=== PATIENT | female | born 1960 | race African-American/Black ===

== ENCOUNTER 2016-12-27 18:51 | Observation (INO) | payer MEDICAID ==
[~2016-12-27 18:51] MED LIST: AUGM875T PO; NORV10TA PO; VASO10TA8; VERA240T18 OR
[2016-12-27 18:55] VITALS: BP 163/97; PULSE 70; RESP 20; TEMP 98.5; O2SAT 98
--- NOTE | 2016-12-27 19:14 | PD ---
HPI Chief Complaint: Chest Pain Time Seen by Provider: 19:11 Travel History International Travel<30 days: No Contact w/Intl Traveler<30days: No Traveled to known affect area: No History of Present Illness HPI 56-year-old Afro-[place] female presents the emergency department with history of present 45 minutes an onset substernal chest pain and tightness which started at rest. Patient describes it as a crampy type pain in the left chest. She denies nausea, vomiting, or significant shortness of breath. Her pain is described as 8 out of 10. Patient has no previous history of cardiac issues other than hypertension. She is currently being treated for glaucoma. She was type II diabetic until losing a large amount of weight. She did not take aspirin prior to arrival. She is allergic to sulfa. Current medications include verapamil and Timolol eyedrops. PFSH Past Medical History Cancer: No Cardiovascular Problems: Yes (hypertension) High Cholesterol: Yes Diabetes: Yes Diminished Hearing: No Endocrine: Yes Genitourinary: No Hepatitis: No Hiatal Hernia: No Hypertension: Yes Immune Disorder: No Musculoskeletal: No Neurologic: No Psychiatric: No Reproductive: No Respiratory: No Sleep Apnea: No Thyroid Disease: No Menopausal: Yes Past Surgical History Abdominal Surgery: Yes AICD: No Body Medical Devices: NONE Cardiac Surgery: No Ear Surgery: No Endocrine Surgery: No Eye Surgery: No Genitourinary Surgery: No Gynecologic Surgery: Yes (HYSTERECTOMY 1994) Hysterectomy: Yes Joint Replacement: No Oral Surgery: No Pacemaker: No Thoracic Surgery: No Other Surgery: Yes Social History Alcohol Use: No Tobacco Use: No Substance Use: No Allergies-Medications (Allergen,Severity, Reaction): Coded Allergies: sulfamethoxazole (Unverified Adverse Reaction, Mild, FALL ASLEEP AND LOSS OF APPETITE, 12/27/16) trimethoprim (Unverified Adverse Reaction, Mild, FALL ASLEEP AND LOSS OF APPETITE, 12/27/16) Reported Meds & Prescriptions Reported Meds & Active Scripts Active Reported Timolol Opth Drops 0.5 % Soln 1 Drop EACH EYE BID Verapamil (Verapamil HCl) 120 Mg Tab 240 Mg PO BID Review of Systems Except as stated in HPI: all other systems reviewed are Neg General / Constitutional: No: Fever Eyes: No: Visual changes HENT: No: Headaches Cardiovascular: Positive: Chest Pain or Discomfort, No: Palpitations, Irregular Rhythm, Tachycardia, Diaphoresis, Syncope, Dyspnea on exertion, Edema Respiratory: No: Shortness of Breath Gastrointestinal: No: Abdominal Pain Genitourinary: No: Dysuria Musculoskeletal: No: Pain Skin: No Rash Neurologic: No: Weakness Psychiatric: No: Depression Endocrine: No: Polydipsia Hematologic/Lymphatic: No: Easy Bruising Physical Exam Narrative GENERAL: Patient appears in mild to moderate distress. She is somewhat anxious. SKIN: Warm and dry. Normal color. Normal turgor. No significant diaphoresis. HEAD: Atraumatic. Normocephalic. EYES: Pupils equal and round. No scleral icterus. No injection or drainage. ENT: No nasal bleeding or discharge. Mucous membranes pink and moist. Pharynx is clear. Airway is patent. NECK: Trachea midline. Supple and nontender. CARDIOVASCULAR: Regular rate and rhythm. No murmurs gallops or rubs appreciated. RESPIRATORY: No accessory muscle use. Clear to auscultation. Breath sounds equal bilaterally. GASTROINTESTINAL: Abdomen soft, non-tender, nondistended. Hepatic and splenic margins not palpable. MUSCULOSKELETAL: Extremities without clubbing, cyanosis, or edema. No obvious deformities. NEUROLOGICAL: Awake and alert. No obvious cranial nerve deficits. Motor grossly within normal limits. Five out of 5 muscle strength in the arms and legs. Normal speech. PSYCHIATRIC: Appropriate mood and affect; insight and judgment normal. Data Data Last Documented VS Vital Signs Date Time Temp Pulse Resp B/P (MAP) Pulse Ox O2 Delivery O2 Flow Rate FiO2 12/27/16 19:49 53 18 163/90 (114) 99 Room Air 12/27/16 19:17 98.6 Orders Orders Electrocardiogram (12/27/16 19:14) Ckmb (Isoenzyme) Profile (12/27/16 19:14) Complete Blood Count With Diff (12/27/16 19:14) Comprehensive Metabolic Panel (12/27/16 19:14) Magnesium (Mg) (12/27/16 19:14) Prothrombin Time / Inr (Pt) (12/27/16 19:14) Act Partial Throm Time (Ptt) (12/27/16 19:14) Troponin I (12/27/16 19:14) Chest, Single Ap (12/27/16 19:14) Ecg Monitoring (12/27/16 19:14) Bilateral Bp Monitoring (12/27/16 19:14) Iv Access Insert/Monitor (12/27/16 19:14) Oximetry (12/27/16 19:14) Oxygen Administration (12/27/16 19:14) Aspirin Chew (Aspirin Chew) (12/27/16 19:15) Morphine Inj (Morphine Inj) (12/27/16 19:15) Sodium Chloride 0.9% Flush (Ns Flush) (12/27/16 19:15) Nitroglycerin Sl (Nitrostat Sl) (12/27/16 19:15) Sodium Chlorid 0.9% 500 Ml Inj (Ns 500 M (12/27/16 19:15) Electrocardiogram (12/27/16 ) Nitroglycerin 2% Oint (Nitroglycerin 2% (12/27/16 20:00) CKMB (12/27/16 19:20) CKMB% (12/27/16 19:20) Labs Laboratory Tests Test 12/27/16 19:20 White Blood Count 7.7 TH/MM3 Red Blood Count 4.05 MIL/MM3 Hemoglobin 12.3 GM/DL Hematocrit 36.9 % Mean Corpuscular Volume 91.1 FL Mean Corpuscular Hemoglobin 30.3 PG Mean Corpuscular Hemoglobin Concent 33.3 % Red Cell Distribution Width 13.3 % Platelet Count 282 TH/MM3 Mean Platelet Volume 7.7 FL Neutrophils (%) (Auto) 53.4 % Lymphocytes (%) (Auto) 36.6 % Monocytes (%) (Auto) 6.3 % Eosinophils (%) (Auto) 3.1 % Basophils (%) (Auto) 0.6 % Neutrophils # (Auto) 4.1 TH/MM3 Lymphocytes # (Auto) 2.8 TH/MM3 Monocytes # (Auto) 0.5 TH/MM3 Eosinophils # (Auto) 0.2 TH/MM3 Basophils # (Auto) 0.0 TH/MM3 CBC Comment DIFF FINAL Differential Comment Prothrombin Time 10.8 SEC Prothromb Time International Ratio 1.0 RATIO Activated Partial Thromboplast Time 25.3 SEC Blood Urea Nitrogen 19 MG/DL Creatinine 1.31 MG/DL Random Glucose 63 MG/DL Total Protein 7.8 GM/DL Albumin 3.9 GM/DL Calcium Level 8.9 MG/DL Magnesium Level 2.0 MG/DL Alkaline Phosphatase 132 U/L Aspartate Amino Transf (AST/SGOT) 30 U/L Alanine Aminotransferase (ALT/SGPT) 30 U/L Total Bilirubin 0.5 MG/DL Sodium Level 142 MEQ/L Potassium Level 3.7 MEQ/L Chloride Level 111 MEQ/L Carbon Dioxide Level 26.8 MEQ/L Anion Gap 4 MEQ/L Estimat Glomerular Filtration Rate 51 ML/MIN Total Creatine Kinase 313 U/L Troponin I LESS THAN 0.02 NG/ML MDM Medical Decision Making Medical Screen Exam Complete: Yes Emergency Medical Condition: Yes Medical Record Reviewed: Yes Differential Diagnosis Substernal chest pain. Cardiac syndrome. Esophageal spasm. Narrative Course Patient is medically stable at time of exam. EKG shows a normal sinus rhythm with minimal voltage criteria for LVH and nonspecific-T wave abnormalities. This was reviewed with Dr. Regan. IV access is obtained and labs are ordered including CBC, CMP, cardiac panel. Patient is given 4 mg Zofran IV as well as 4 mg of morphine IV. Patient is given sublingual nitroglycerin 0.4 mg one every 5 minutes for chest pain 3. Patient is given 324 mg aspirin by mouth. Chest x-ray is ordered. 1945 hours, patient is been given 4 mg morphine as well as 1 sublingual nitroglycerin and her pain is improved to a 3 out of 10. Patient is given a secondary dose of sublingual nitroglycerin 0.4 mg. Repeat EKG at 194, shows flipped T waves in the ventral leads, more pronounced than the original EKG at 1912 hrs. This was reviewed with Dr. Regan. CBC was unremarkable. Chest x-ray shows no acute process per radiologist. Coagulation studies are normal. Chemistries unremarkable except for a chloride of 111, a 19, creatinine 1.31, GFR 51, random glucose is 63. Alkaline phosphatase is elevated at 132, total creatinine kinase is 313, however troponin is less than 0.02. Patient was pain-free after her second dose of sublingual nitroglycerin 0.4. Patient was placed on 1 inch of nitroglycerin paste. Findings discussed with Dr. Regan who recommended admission to the chest pain center. Diagnosis Primary Impression: Chest pain at rest Admitting Information Admitting Physician Requests: Observation Condition: Stable Robert Moulton Dec 27, 2016 19:14
[2016-12-27] MEDS ORDERED: SODIUM CHLORID 0.9% 500 ML INJ 500 ML IV ONE (19:15)
[2016-12-27] MEDS ORDERED: SODIUM CHLORIDE 0.9% FLUSH 10 ML FLUSH IVF PRN (19:15)
[2016-12-27] MEDS ORDERED: MORPHINE SULFATE 4 MG/ML INJ IV PUSH ONE (19:15)
[2016-12-27] MEDS ORDERED: ASPIRIN 81 MG CHEW TAB PO ONE (19:15)
[2016-12-27] MEDS ORDERED: VERA120T3 PO (19:16)
[2016-12-27] MEDS ORDERED: TIMO0.5S30 EACH EYE (19:16)
[2016-12-27 19:17] VITALS: BP_SYST 173; BP_SYST 180; BP_DIAS 102; BP_DIAS 88; PULSE 76; RESP 18; TEMP 98.6; O2SAT 99
[2016-12-27] MEDS: NITROGLYCERIN 0.4 MG SL 25 TABS/BTL SL SCH ×3 (19:32→19:53)
[2016-12-27 19:41] LABS: AUTOMATED NEUTROPHIL # 4.1 TH/MM3 (1.8-7.7); BASOPHIL % 0.6 % (0.0-2.0); EOSINOPHIL # 0.2 TH/MM3 (0-0.4); EOSINOPHIL % 3.1 % (0.0-4.0); HEMATOCRIT 36.9 % (35.0-46.0); HEMO FLAGS DIFF FINAL; LYMPH % 36.6 % (9.0-44.0); LYMPHOCYTE # 2.8 TH/MM3 (1.0-4.8); MEAN CELL VOLUME 91.1 FL (80.0-100.0); MEAN CORPUSCULAR HEMOGLOBIN 30.3 PG (27.0-34.0); MEAN CORPUSCULAR HGB CONC 33.3 % (32.0-36.0); MONO % 6.3 % (0.0-8.0); NEUT % 53.4 % (16.0-70.0); PLATELET COUNT 282 TH/MM3 (150-450); RED BLOOD COUNT 4.05 MIL/MM3 (4.00-5.30); RED CELL DISTRIBUTION WIDTH 13.3 % (11.6-17.2); WHITE BLOOD COUNT 7.7 TH/MM3 (4.0-11.0)
--- NOTE | 2016-12-27 19:47 | RADRPT ---
EXAM DATE/TIME: 12/27/2016 19:26 [facility] COMPARISON: No previous studies available for comparison. INDICATIONS : Chest pain. MEDICAL HISTORY : None. SURGICAL HISTORY : None. ENCOUNTER: Initial ACUITY: 1 day PAIN SCORE: 5/10 LOCATION: Bilateral chest FINDINGS: A single view of the chest demonstrates the lungs to be symmetrically aerated without evidence of mas s, infiltrate or effusion. The cardiomediastinal contours are unremarkable. Osseous structures are intact. CONCLUSION: No acute disease. Louie Day MD on December 27, 2016 at 19:46 Board Certified Radiologist. This report was verified electronically.
[2016-12-27 19:49] VITALS: BP 163/90; PULSE 53; RESP 18; O2SAT 99
[2016-12-27 19:52] LABS: APTT (PATIENT) 25.3 SEC (24.3-30.1); PROTHROMBIN TIME - PATIENT 10.8 SEC (9.8-11.6)
[2016-12-27 19:59] LABS: ALT (GPT) 30 U/L (10-53)
[2016-12-27] MEDS ORDERED: NITROGLYCERIN 2% OINT 1 GM PACKET TOPICAL ONE (20:00)
[2016-12-27 20:09] LABS: ALKALINE PHOSPHATASE 132 U/L (45-117); ANION GAP 4 MEQ/L (5-15); AST (GOT) 30 U/L (15-37); BICARBONATE 26.8 MEQ/L (21.0-32.0); BLOOD UREA NITROGEN 19 MG/DL (7-18); CHLORIDE 111 MEQ/L (98-107); CREATINE KINASE 313 U/L (26-192); GLOMERULAR FILTRATION RATE 51 ML/MIN (>89); POTASSIUM 3.7 MEQ/L (3.5-5.1); SODIUM (NA) 142 MEQ/L (136-145); TOTAL BILIRUBIN ADULT 0.5 MG/DL (0.2-1.0)
[2016-12-27 20:21] LABS: CKMB 1.4 NG/ML (0.5-3.6)
[2016-12-27] MEDS ORDERED: MORPHINE SULFATE 4 MG/ML INJ IV PUSH PRN (20:30)
[2016-12-27] MEDS ORDERED: ONDANSETRON HCL 4 MG/2 ML VIAL IV PUSH PRN (20:30)
[2016-12-27] MEDS ORDERED: ACETAMINOPHEN 500 MG CPLT PO PRN (20:30)
[2016-12-27] MEDS ORDERED: SODIUM CHLORIDE 0.9% FLUSH 10 ML FLUSH IV FLUSH PRN (20:30)
[2016-12-27] MEDS ORDERED: NITROGLYCERIN 0.4 MG SL 25 TABS/BTL SL PRN (20:30)
[2016-12-27 21:31] VITALS: BP 178/80; PULSE 51; RESP 18; O2SAT 100
[2016-12-27] MEDS: SODIUM CHLORIDE 0.9% FLUSH 10 ML FLUSH IV FLUSH SCH (21:39)
[2016-12-27 23:08] VITALS: BP 157/78; PULSE 54; RESP 18; TEMP 97.6; O2SAT 100
[2016-12-27 23:24] VITALS: PULSE 64
[2016-12-28] MEDS: NITROGLYCERIN 2% OINT 1 GM PACKET TOP SCH ×3 (00:05→12:00)
[2016-12-28 00:42] VITALS: BP 110/67; PULSE 61; RESP 18; TEMP 97.6; O2SAT 97
[2016-12-28 03:25] LABS: CREATINE KINASE 209 U/L (26-192)
[2016-12-28 03:40] LABS: CKMB 2.2 NG/ML (0.5-3.6)
[2016-12-28 04:55] LABS: CREATINE KINASE 193 U/L (26-192)
[2016-12-28 05:08] VITALS: BP 138/84; PULSE 51; RESP 17; TEMP 98.1; O2SAT 98
[2016-12-28 05:09] LABS: CKMB 1.7 NG/ML (0.5-3.6)
[2016-12-28 07:25] VITALS: BP 123/74; PULSE 62; RESP 17; TEMP 97.5; O2SAT 100
[2016-12-28 08:00] VITALS: PULSE 53
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
[2016-12-28] MEDS: SODIUM CHLORIDE 0.9% FLUSH 10 ML FLUSH IV FLUSH SCH (09:00)
[2016-12-28] MEDS ORDERED: TIMOLOL MALEATE 0.5% OPHT SOLN 5 ML BTL EACH EYE SCH (09:00)
[2016-12-28] MEDS ORDERED: VERAPAMIL HCL 120 MG TAB PO SCH (09:00)
[2016-12-28] MEDS ORDERED: REGADENOSON INJ 0.4 MG/5 ML SYR ONE (11:22)
[2016-12-28 13:20] VITALS: BP 142/74; PULSE 59; RESP 18; TEMP 97.8; O2SAT 99
--- NOTE | 2016-12-28 13:40 | RADRPT ---
EXAM DATE/TIME: 12/28/2016 08:50 [facility] COMPARISON: No previous studies available for comparison. INDICATIONS : Left sided chest pain. Angina. DOSE: 26.1 mCi Tc99m Myoview at stress. 8.2 mCi Tc99m Myoview at rest. 0.4 mg Lexiscan STRESS SYMPTOMS: Shortness of breath and coughing. EJECTION FRACTION: 70% MEDICAL HISTORY : Hypertension. SURGICAL HISTORY : Hysterectomy. ENCOUNTER: Initial ACUITY: 1 day PAIN SCALE: 8/10 LOCATION: Left chest TECHNIQUE: The patient underwent pharmacologic stress with infusion of prescribed dose. Continuous ECG tracing was monitored during stress. Gated SPECT imaging was performed after stress and conventional SPECT i maging was performed at rest. The examination was performed on a SPECT/CT scanner, both attenuation and non-corrected datasets were reviewed. FINDINGS: DISTRIBUTION: The maximum perfused segment at stress is in the anterolateral wall. PERFUSION STUDY: The pattern of perfusion at stress is within normal limits. GATED STUDY: There is intact wall motion and thickening without hypokinetic or dyskinetic segments. CONCLUSION: 1. No reversibility to suggest ischemia. 2. Normal wall motion with ejection fraction 70%. RISK CATEGORY: Low (<1% Annual Mortality Rate) Danyel Perry MD on December 28, 2016 at 13:38 Board Certified Radiologist. This report was verified electronically.
[2016-12-28] MEDS ORDERED: HYDR-3798 PO (14:07)
--- NOTE | 2016-12-28 14:08 | HHI.DCPOC ---
Discharge Care Plan Diagnosis: (1) Atypical chest pain (2) Situational stress (3) Hypertension Goals to Promote Your Health * To prevent worsening of your condition and complications * To maintain your health at the optimal level Directions to Meet Your Goals Take your medications as prescribed Follow your dietary instruction Follow activity as directed Keep your appointments as scheduled Take your immunizations and boosters as scheduled If your symptoms worsen call your PCP, if no PCP go to Urgent Care Center or Emergency Room Smoking is Dangerous to Your Health. Avoid second hand smoke Call the 24-hour hour crisis hotline for domestic abuse at Krystal Cabello Dec 28, 2016 14:07
--- NOTE | 2016-12-28 17:05 | TR ---
Date Performed: 12/28/2016 Time Performed: 10:20:06 DOCTOR: Bel Kelley DRUG LIST: CLINICAL HISTORY: REASON FOR TEST: REASON FOR ENDING: OBSERVATION: CONCLUSION: Jimbo protocol attempted. Stopped sec to rate related bundle block. Maximum ZJ=483 % Target HR Achieved=80.0% Maximum VR=340/80 Total Exercise Time=4:30. No reprod chest pain. Freq PVCs and couplets stage II. Moderate t waves changes prior to c\exam. Nuc ett converted to lexiscan. COMMENTS:
--- NOTE | 2016-12-28 18:27 | TR ---
Date Performed: 12/28/2016 Time Performed: 11:28:41 DOCTOR: Bel Kelley DRUG LIST: CLINICAL HISTORY: ANGINA REASON FOR TEST: Angina REASON FOR ENDING: OBSERVATION: CONCLUSION: Lexiscan stress test was performed under standard four minute protocol. Radionuclid e was injected one minute prior to ending the test. No electrocardiographic abormalities were present to suggest ischemia. Nuclear imaging and interpretation are pending. COMMENTS:
--- NOTE | 2016-12-28 18:31 | EKG ---
Date Performed: 12/27/2016 Time Performed: 19:41:33 PTAGE: 56 years EKG: Sinus rhythm MODERATE VOLTAGE CRITERIA FOR LVH, CONSIDER NORMAL VARIANT MODERATE T-WAVE ABNORMALITY, CONSIDER ANT ERIOR ISCHEMIA ABNORMAL ECG NO PREVIOUS TRACING DOCTOR: Bel Kelley Interpretating Date/Time 12/28/2016 18:30:16
--- NOTE | 2016-12-28 18:31 | EKG ---
Date Performed: 12/27/2016 Time Performed: 22:35:04 PTAGE: 56 years EKG: SINUS BRADYCARDIA VOLTAGE CRITERIA FOR LVH MODERATE T-WAVE ABNORMALITY, CONSIDER ANTERIOR I SCHEMIA ABNORMAL ECG Since PREVIOUS TRACING , no significant change noted PREVIOUS TRACIN12/27/2016 22.32 DOCTOR: Bel Kelley Interpretating Date/Time 12/28/2016 18:31:14
--- NOTE | 2016-12-28 18:32 | EKG ---
Date Performed: 12/28/2016 Time Performed: 03:12:11 PTAGE: 56 years EKG: SINUS BRADYCARDIA MODERATE T-WAVE ABNORMALITY, CONSIDER ANTERIOR ISCHEMIA ABNORMAL ECG Sinc e PREVIOUS TRACING , no significant change noted PREVIOUS TRACIN12/27/2016 22.35 DOCTOR: Bel Kelley Interpretating Date/Time 12/28/2016 18:31:47
== END 2016-12-28 17:13 | disposition home or self-care (01) ==
LOC: NEPE 18:51 → NEDA 20:23 → NEPHCDU 21:52
PROVIDERS: ADMIT Internal Medicine Cardiovascular Disease; ATTEND Internal Medicine Cardiovascular Disease
DX: R07.89 Other chest pain (principal); I10 Essential (primary) hypertension; F43.0 Acute stress reaction; E11.9 Type 2 diabetes mellitus without complications; E78.00 Pure hypercholesterolemia, unspecified; R94.31 Abnormal electrocardiogram [ECG] [EKG]; H40.9 Unspecified glaucoma; N28.9 Disorder of kidney and ureter, unspecified; Z88.2 Allergy status to sulfonamides; Z98.84 Bariatric surgery status
CPT/HCPCS: 71010; 78452; 80053; 82550; 82552; 83735; 84484; 85025; 85610; 85730; 93005; 93017; 96361; 96374; 96375; 99285; A9502; G0378; J2270; J2405; J2785; J7040

== ENCOUNTER 2017-01-07 16:14 | Inpatient (IN) | payer MEDICAID, OTHER ==
[~2017-01-07] VITALS: Ht 162.6 cm; Wt 73.4 kg
[~2017-01-07 16:14] MED LIST changes: -AUGM875T PO; +HYDR-3798 PO; -NORV10TA PO; +TIMO0.5S30 EACH EYE; -VASO10TA8; +VERA120T3 PO; -VERA240T18 OR
[2017-01-07 16:16] VITALS: BP 183/102; PULSE 62; RESP 12; TEMP 98.9; O2SAT 100
[2017-01-07] MEDS ORDERED: SODIUM CHLORIDE 0.9% FLUSH 10 ML FLUSH IVF PRN (17:15)
[2017-01-07 17:26] LABS: AUTOMATED NEUTROPHIL # 3.6 TH/MM3 (1.8-7.7); BASOPHIL % 0.7 % (0.0-2.0); EOSINOPHIL # 0.2 TH/MM3 (0-0.4); EOSINOPHIL % 3.5 % (0.0-4.0); HEMATOCRIT 35.6 % (35.0-46.0); HEMO FLAGS DIFF FINAL; LYMPH % 35.1 % (9.0-44.0); LYMPHOCYTE # 2.3 TH/MM3 (1.0-4.8); MEAN CELL VOLUME 91.4 FL (80.0-100.0); MEAN CORPUSCULAR HEMOGLOBIN 30.3 PG (27.0-34.0); MEAN CORPUSCULAR HGB CONC 33.2 % (32.0-36.0); NEUT % 54.7 % (16.0-70.0); PLATELET COUNT 286 TH/MM3 (150-450); RED CELL DISTRIBUTION WIDTH 13.4 % (11.6-17.2); WHITE BLOOD COUNT 6.5 TH/MM3 (4.0-11.0)
[2017-01-07] MEDS ORDERED: ASPIRIN 81 MG CHEW TAB PO ONE (17:30)
[2017-01-07] MEDS: NITROGLYCERIN 0.4 MG SL 25 TABS/BTL SL SCH ×3 (17:30→17:40)
--- NOTE | 2017-01-07 17:30 | PD ---
HPI Chief Complaint: Chest Pain Time Seen by Provider: 17:12 Travel History International Travel<30 days: No Contact w/Intl Traveler<30days: No Traveled to known affect area: No History of Present Illness HPI Patient was in the emergency Department at the request or primary care doctor for evaluation of left-sided chest pain that began around 1:00 this afternoon. Patient describes pain is a discomfort/pinching/squeezing sensation in her left chest without radiation. Patient reports mild associated shortness of breath with this and left-sided neck pain. Patient denies any trauma. Patient states this does not feel as bad as when she was in the hospital 2 weeks ago and evaluated for chest pain at that time having a negative stress test. Patient denies anything making this better or worse. Patient denies doing anything for this prior to the emergency department. Denies any diaphoresis, headaches, dizziness, numbness or tingling anywhere, abdominal pain, back pain, loss change in bowel or bladder, or trauma. PFSH Past Medical History Cancer: No Cardiovascular Problems: Yes (hypertension) High Cholesterol: Yes Diabetes: No (DENIES DX AT THIS TIME) Diminished Hearing: No Endocrine: Yes Genitourinary: No Hepatitis: No Hiatal Hernia: No Hypertension: Yes Immune Disorder: No Musculoskeletal: No Neurologic: No Psychiatric: No Reproductive: No Respiratory: No Immunizations Current: Yes Sleep Apnea: No Thyroid Disease: No Menopausal: Yes : 3 Para: 3 Past Surgical History Abdominal Surgery: Yes (GASTRIC BYPASS) AICD: No Body Medical Devices: NONE Cardiac Surgery: No Ear Surgery: No Endocrine Surgery: No Eye Surgery: No Genitourinary Surgery: No Gynecologic Surgery: Yes (HYSTERECTOMY 1994) Hysterectomy: Yes Joint Replacement: No Oral Surgery: No Pacemaker: No Thoracic Surgery: No Other Surgery: Yes Social History Alcohol Use: No Tobacco Use: No Substance Use: No Allergies-Medications (Allergen,Severity, Reaction): Coded Allergies: sulfamethoxazole (Unverified Adverse Reaction, Mild, FALL ASLEEP AND LOSS OF APPETITE, 01/07/17) trimethoprim (Unverified Adverse Reaction, Mild, FALL ASLEEP AND LOSS OF APPETITE, 01/07/17) Reported Meds & Prescriptions Reported Meds & Active Scripts Active Hydralazine HCl 10 Mg Tablet 10 Mg PO Q6HR 30 Days Reported Timolol Opth Drops 0.5 % Soln 1 Drop EACH EYE BID Verapamil (Verapamil HCl) 120 Mg Tab 240 Mg PO BID Review of Systems Except as stated in HPI: all other systems reviewed are Neg Physical Exam Narrative GENERAL: Well-developed, well nourished, in no acute distress, and non-ill appearing. SKIN: Focused skin assessment warm and dry. HEAD: Atraumatic. Normocephalic. EYES: Pupils equal and round. EOMI. No scleral icterus. No injection or drainage. ENT: No nasal bleeding or discharge. Mucous membranes pink and moist. NECK: Trachea midline. No JVD. Supple. No nuclear rigidity. CARDIOVASCULAR: Regular rate and rhythm. No murmur appreciated. RESPIRATORY: No accessory muscle use. No respiratory distress. Clear to auscultation. Breath sounds equal bilaterally. MUSCULOSKELETAL: No obvious deformities. No clubbing. No cyanosis. No edema. Full range of motion. NEUROLOGICAL: Awake and alert. No obvious cranial nerve deficits. Motor grossly within normal limits. Normal speech. PSYCHIATRIC: Appropriate mood and affect; insight and judgment normal. Data Data Last Documented VS Vital Signs Date Time Temp Pulse Resp B/P (MAP) Pulse Ox O2 Delivery O2 Flow Rate FiO2 01/07/17 17:32 45 16 100 Room Air 01/07/17 17:32 169/83 (111) 01/07/17 16:16 98.9 Orders Orders Electrocardiogram (01/07/17 16:29) Complete Blood Count With Diff (01/07/17 16:59) Basic Metabolic Panel (Bmp) (01/07/17 16:59) Ckmb (Isoenzyme) Profile (01/07/17 16:59) Troponin I (01/07/17 16:59) Electrocardiogram (01/07/17 17:12) Magnesium (Mg) (01/07/17 17:12) Prothrombin Time / Inr (Pt) (01/07/17 17:12) Act Partial Throm Time (Ptt) (01/07/17 17:12) Chest, Single Ap (01/07/17 17:12) Ecg Monitoring (01/07/17 17:12) Bilateral Bp Monitoring (01/07/17 17:12) Iv Access Insert/Monitor (01/07/17 17:12) Oximetry (01/07/17 17:12) Oxygen Administration (01/07/17 17:12) Sodium Chloride 0.9% Flush (Ns Flush) (01/07/17 17:15) Aspirin Chew (Aspirin Chew) (01/07/17 17:30) Nitroglycerin Sl (Nitrostat Sl) (01/07/17 17:30) CKMB (01/07/17 16:45) CKMB% (01/07/17 16:45) Nitroglycerin 2% Oint (Nitroglycerin 2% (01/07/17 19:30) Heparin Infusion SILVA.Q1H (01/07/17 19:26) Act Partial Throm Time (Ptt) (01/07/17 19:26) Prothrombin Time / Inr (Pt) (01/07/17 19:26) Cbc No Diff, Includes Plts (01/07/17 19:26) Cbc No Diff, Includes Plts (01/10/17 06:00) Act Partial Throm Time (Ptt) (01/08/17 02:26) Occult Blood (Hemoccult) Stool (01/07/17 19:26) Heparin Infusion SILVA.Q1H (01/07/17 19:30) Heparin Inj (Heparin Inj) (01/08/17 01:30) Heparin Inj (Heparin Inj) (01/08/17 01:30) Heparin-D5w 67310/250 (For Ed) (Heparin- (01/07/17 19:30) Act Partial Throm Time (Ptt) (01/07/17 19:30) Act Partial Throm Time (Ptt) (01/08/17 02:30) Occult Blood (Hemoccult) Stool (01/07/17 19:30) Consult Cardiology (01/07/17 ) Admit Order (Ed Use Only) (01/07/17 19:33) Labs Laboratory Tests Test 01/07/17 16:45 01/07/17 18:20 White Blood Count 6.5 TH/MM3 Red Blood Count 3.90 MIL/MM3 Hemoglobin 11.8 GM/DL Hematocrit 35.6 % Mean Corpuscular Volume 91.4 FL Mean Corpuscular Hemoglobin 30.3 PG Mean Corpuscular Hemoglobin Concent 33.2 % Red Cell Distribution Width 13.4 % Platelet Count 286 TH/MM3 Mean Platelet Volume 7.8 FL Neutrophils (%) (Auto) 54.7 % Lymphocytes (%) (Auto) 35.1 % Monocytes (%) (Auto) 6.0 % Eosinophils (%) (Auto) 3.5 % Basophils (%) (Auto) 0.7 % Neutrophils # (Auto) 3.6 TH/MM3 Lymphocytes # (Auto) 2.3 TH/MM3 Monocytes # (Auto) 0.4 TH/MM3 Eosinophils # (Auto) 0.2 TH/MM3 Basophils # (Auto) 0.0 TH/MM3 CBC Comment DIFF FINAL Differential Comment Blood Urea Nitrogen 12 MG/DL Creatinine 1.01 MG/DL Random Glucose 68 MG/DL Calcium Level 9.0 MG/DL Sodium Level 142 MEQ/L Potassium Level 3.4 MEQ/L Chloride Level 109 MEQ/L Carbon Dioxide Level 25.4 MEQ/L Anion Gap 8 MEQ/L Estimat Glomerular Filtration Rate 69 ML/MIN Magnesium Level 2.1 MG/DL Total Creatine Kinase 215 U/L Creatine Kinase MB 1.5 NG/ML Creatine Kinase MB % 0.7 % Troponin I LESS THAN 0.02 NG/ML Prothrombin Time 11.1 SEC Prothromb Time International Ratio 1.0 RATIO Activated Partial Thromboplast Time 31.0 SEC MDM Medical Decision Making Medical Screen Exam Complete: Yes Emergency Medical Condition: Yes Interpretation(s) EKG reviewed by Dr. Jackson shows sinus bradycardia with ventricular rate of 56. No STEMI. With T-wave inversion changes in V1 and V2 compared to previous EKG. Differential Diagnosis Acute coronary syndrome, angina, pneumonia, COPD, pneumothorax, electrolyte abnormality, other Narrative Course Patient was seen and examined. Initial laboratory neurological studies were ordered. Patient was given a dose of aspirin and nitroglycerin improvement of symptoms. Discussed patient with Dr. Davidson, who recommends having the patient admitted to medicine for cardiology evaluation secondary to recent hospital admission with a negative stress test. Discussed all findings and plan of care with patient, who was agreeable for admission. All questions were answered. Discussed patient with cardiology recommends Nitropaste, heparin drip, nothing by mouth after minute, morphine if needed for pain and a cardiology consult. Discussed patient with hospitalist, who was agreeable to this patient.. Physician Communication Physician Communication [address] Phan, demo event specialist personal financial counselor recommends Nitropaste, heparin drip, and morphine if needed for the pain an outpatient. After midnight with a consult cardiology. Diagnosis Primary Impression: Atypical chest pain Admitting Information Admitting Physician Requests: Admit Condition: Stable Erick Blank Jan 07, 2017 17:30
[2017-01-07 17:32] VITALS: BP 169/83; PULSE 47; RESP 16; O2SAT 99
[2017-01-07 17:46] LABS: ANION GAP 8 MEQ/L (5-15); BICARBONATE 25.4 MEQ/L (21.0-32.0); BLOOD UREA NITROGEN 12 MG/DL (7-18); CHLORIDE 109 MEQ/L (98-107); GLOMERULAR FILTRATION RATE 69 ML/MIN (>89); POTASSIUM 3.4 MEQ/L (3.5-5.1); SODIUM (NA) 142 MEQ/L (136-145)
[2017-01-07 17:50] LABS: CREATINE KINASE 215 U/L (26-192)
[2017-01-07 18:02] LABS: CKMB 1.5 NG/ML (0.5-3.6)
--- NOTE | 2017-01-07 18:15 | RADRPT ---
EXAM DATE/TIME: 01/07/2017 17:41 [facility] COMPARISON: CHEST SINGLE AP, December 27, 2016, 19:26. INDICATIONS : Shortness of breath and left sided chest pain. MEDICAL HISTORY : None. SURGICAL HISTORY : None. ENCOUNTER: Initial ACUITY: 1 day PAIN SCORE: 3/10 LOCATION: Left chest FINDINGS: A single view of the chest demonstrates the lungs to be symmetrically aerated without evidence of mas s, infiltrate or effusion. The cardiomediastinal contours are unremarkable. Osseous structures are intact. CONCLUSION: 1. No acute cardiopulmonary findings. Travis Coburn MD on January 07, 2017 at 18:13 Board Certified Radiologist. This report was verified electronically.
[2017-01-07 18:57] LABS: PROTHROMBIN TIME - PATIENT 11.1 SEC (9.8-11.6)
[2017-01-07 19:00] VITALS: BP 114/60; PULSE 46; RESP 16; O2SAT 100
[2017-01-07] MEDS ORDERED: NITROGLYCERIN 2% OINT 1 GM PACKET TOP ONE (19:30)
[2017-01-07] MEDS ORDERED: [UNRECOGNIZED DRUG - OTHER] IV ONE ×2 (19:30)
--- NOTE | 2017-01-07 19:41 | HHI.HP ---
[facility] Timothy Ritchie MD Admission Diagnosis chest pain Diagnoses: (1) Chest pain Diagnosis: Principal (2) Hypokalemia Diagnosis: Principal (3) Renal insufficiency Diagnosis: Principal (4) Rhabdomyolysis Diagnosis: Principal (5) HTN (hypertension) Diagnosis: Principal Travel History International Travel<30 Days: No Contact w/Intl Traveler <30 Da: No Traveled to Known Affected Are: No History of Present Illness This is a 69-year-old female with a PMH of HTN who was referred to the ER by her PCP for complaints of chest pain. [facility], Stress Test 12/28/16 w/ no evidence of ischemia, normal wall motion and EF 70%, Low Risk. States has been having ongoing chest pain since that time. Denies fever, chills, SOB or sick contacts. On arrival, BP 183/102, HR 62, O2 sat 100% on RA, Afebrile. CBC unremarkable. K+ 3.4. Creatinine 1.01, previously 1.31 on 12/27/16. CPK 215. Trop negative. EKG w/ new T-wave inversions V1 and V2 in comparison to previous EKG. Dr. Phan consulted by ER physician, Heparin gtt and NPO for Cath in am. Review of Systems Except as stated in HPI: all other systems reviewed are Neg ROS: 14 point review of systems otherwise negative. Past Family Social History Past Medical History PMH: HTN Past Surgical History PAST SURGICAL HISTORY: Gastric Bypass, Hysterectomy Allergies: Coded Allergies: sulfamethoxazole (Unverified Adverse Reaction, Mild, FALL ASLEEP AND LOSS OF APPETITE, 01/07/17) trimethoprim (Unverified Adverse Reaction, Mild, FALL ASLEEP AND LOSS OF APPETITE, 01/07/17) Family History PAST FAMILY HISTORY: Reviewed. No h/o DM or CAD Social History PAST SOCIAL HISTORY: Negative for alcohol, tobacco or drugs. Physical Exam Vital Signs Vital Signs Date Time Temp Pulse Resp B/P (MAP) Pulse Ox O2 Delivery O2 Flow Rate FiO2 01/07/17 17:32 45 16 100 Room Air 01/07/17 17:32 98 Room Air 01/07/17 17:32 47 16 169/83 (111) 99 Room Air 01/07/17 16:16 98.9 62 12 183/102 (129) 100 Physical Exam PE: GENERAL: Middle-aged black female in no acute distress. HEENT: PERRLA, EOMI. No scleral icterus or conjunctival pallor. No lid lag or facial droop. CARDIOVASCULAR: Regular rate and rhythm. No obvious murmurs to auscultation. No chest tenderness to palpation. RESPIRATORY: No obvious rhonchi or wheezing. Clear to auscultation. Breath sounds equal bilaterally. GASTROINTESTINAL: Abdomen soft, non-tender, nondistended. BS normal. MUSCULOSKELETAL: Extremities without clubbing, cyanosis, or edema. No obvious deformities. NEUROLOGICAL: Awake, alert and oriented x4. No focal neurologic deficits. Moving both upper and lower extremities spontaneously. Laboratory Laboratory Tests Test 01/07/17 16:45 01/07/17 18:20 White Blood Count 6.5 Red Blood Count 3.90 Hemoglobin 11.8 Hematocrit 35.6 Mean Corpuscular Volume 91.4 Mean Corpuscular Hemoglobin 30.3 Mean Corpuscular Hemoglobin Concent 33.2 Red Cell Distribution Width 13.4 Platelet Count 286 Mean Platelet Volume 7.8 Neutrophils (%) (Auto) 54.7 Lymphocytes (%) (Auto) 35.1 Monocytes (%) (Auto) 6.0 Eosinophils (%) (Auto) 3.5 Basophils (%) (Auto) 0.7 Neutrophils # (Auto) 3.6 Lymphocytes # (Auto) 2.3 Monocytes # (Auto) 0.4 Eosinophils # (Auto) 0.2 Basophils # (Auto) 0.0 CBC Comment DIFF FINAL Differential Comment Blood Urea Nitrogen 12 Creatinine 1.01 Random Glucose 68 Calcium Level 9.0 Sodium Level 142 Potassium Level 3.4 Chloride Level 109 Carbon Dioxide Level 25.4 Anion Gap 8 Estimat Glomerular Filtration Rate 69 Magnesium Level 2.1 Total Creatine Kinase 215 Creatine Kinase MB 1.5 Creatine Kinase MB % 0.7 Troponin I LESS THAN 0.02 Prothrombin Time 11.1 Prothromb Time International Ratio 1.0 Activated Partial Thromboplast Time 31.0 Result Diagram: 01/07/17 1645 01/07/171644 Caprini VTE Risk Assessment Caprini VTE Risk Assessment: Mod/High Risk (score >= 2) Caprini Risk Assessment Model Point Value = 1 Point Value = 2 Point Value = 3 Point Value = 5 Age 41-60 Minor surgery BMI > 25 kg/m2 Swollen legs Varicose veins or History of unexplained or recurrent spontaneous Oral contraceptives or hormone replacement Sepsis (< 1 month) Serious lung disease, including pneumonia (< 1 month) Abnormal pulmonary function Acute myocardial infarction Congestive heart failure (< 1 month) History of inflammatory bowel disease Medical patient at bed rest Age 61-74 Arthroscopic surgery Major open surgery (> 45 min) Laparoscopic surgery (> 45 min) Malignancy Confined to bed (> 72 hours) Immobilizing plaster cast Central venous access Age >= 75 History of VTE Family history of VTE Factor V Leiden Prothrombin [id number] Lupus anticoagulant Anticardiolipin antibodies Elevated serum homocysteine Heparin-induced thrombocytopenia Other congenital or acquired thrombophilia Stroke (< 1 month) Elective arthroplasty Hip, pelvis, or leg fracture Acute spinal cord injury (< 1 month) Prophylaxis Regimen Total Risk Factor Score Risk Level Prophylaxis Regimen 0-1 Low Early ambulation 2 Moderate Order ONE of the following: *Sequential Compression Device (SCD) *Heparin 5000 units SQ BID 3-4 Higher Order ONE of the following medications: *Heparin 5000 units SQ TID *Enoxaparin/Lovenox 40 mg SQ daily (WT < 150 kg, CrCl > 30 mL/min) *Enoxaparin/Lovenox 30 mg SQ daily (WT < 150 kg, CrCl > 10-29 mL/min) *Enoxaparin/Lovenox 30 mg SQ BID (WT < 150 kg, CrCl > 30 mL/min) AND/OR *Sequential Compression Device (SCD) 5 or more Highest Order ONE of the following medications: *Heparin 5000 units SQ TID (Preferred with Epidurals) *Enoxaparin/Lovenox 40 mg SQ daily (WT < 150 kg, CrCl > 30 mL/min) *Enoxaparin/Lovenox 30 mg SQ daily (WT < 150 kg, CrCl > 10-29 mL/min) *Enoxaparin/Lovenox 30 mg SQ BID (WT < 150 kg, CrCl > 30 mL/min) AND *Sequential Compression Device (SCD) Assessment and Plan Problem List: (1) Chest pain ICD Code: R07.9 - Chest pain, unspecified (2) Hypokalemia ICD Code: E87.6 - Hypokalemia (3) Rhabdomyolysis ICD Code: M62.82 - Rhabdomyolysis (4) Renal insufficiency ICD Code: N28.9 - Disorder of kidney and ureter, unspecified (5) HTN (hypertension) ICD Code: I10 - Essential (primary) hypertension Assessment and Plan A/P: 1. Chest Pain: R/o ACS. Recent admit 12/28/16 to [facility] for same, s/p Stress Test 12/28/16 negative for ischemia, now w/ ongoing chest pain and abnormal EKG in comparison to previous. Dr. Phan consulted by ER physician, plan is for Cath in am. NPO. Heparin gtt started in ER. NTG/Morphine prn. Check serial cardiac enzymes. ASA, Statin. Hold B-billie in light of bradycardia. 2. Rhabdomyolysis: Mild. CPK 215. IVF for hydration, check serial CPK for trend. 3. Hypokalemia: Mild. K+ 3.4, will replace and recheck in am. 4. Renal Insufficiency: Chronic. Creatinine 1.01, previously 1.31 on . IVF for hydration, repeat labs in am. 5. HTN: BP 160-180's, likely compounded by pain complaints, currently BP 114/ 60, HR 46. Resume home medications, monitor BP. 6. DVT Prophylaxis: Heparin gtt. 7. Social work for d/c planning as needed. 8. Case discussed w/ ER physician at length. Physician Certification 2 Midnight Certification Type: Admission for Inpatient Services Order for Inpatient Services The services are ordered in accordance with Medicare regulations or non- Medicare payer requirements, as applicable. In the case of services not specified as inpatient-only, they are appropriately provided as inpatient services in accordance with the 2-midnight benchmark. Estimated LOS (days): 2 days is the estimated time the patient will need to remain in the hospital, assuming treatment plan goals are met and no additional complications. Post-Hospital Plan: Not yet determined Juana Raphael MD Jan 07, 2017 19:41
[2017-01-07] MEDS ORDERED: MORPHINE SULFATE 4 MG/ML INJ IV PUSH PRN (19:45)
[2017-01-07] MEDS ORDERED: BISACODYL 10 MG SUPP RECTAL PRN (19:45)
[2017-01-07] MEDS ORDERED: ONDANSETRON HCL 4 MG/2 ML VIAL IVP PRN (19:45)
[2017-01-07] MEDS ORDERED: ACETAMINOPHEN 325 MG TAB PO PRN (19:45)
[2017-01-07] MEDS ORDERED: MAGNESIUM HYDROXIDE SUSP 30 ML CUP PO PRN (19:45)
[2017-01-07] MEDS ORDERED: SENNOSIDES 8.6 MG TAB PO PRN (19:45)
[2017-01-07] MEDS ORDERED: LACTULOSE SYRUP 20 GM/30 ML CUP PO PRN (19:45)
[2017-01-07] MEDS ORDERED: SODIUM CHLORIDE 0.9% FLUSH 10 ML FLUSH IV FLUSH PRN (19:45)
[2017-01-07 20:10] VITALS: BP_SYST 130; BP_SYST 172; BP_DIAS 70; BP_DIAS 71; PULSE 48; PULSE 52; RESP 16; RESP 19; TEMP 98.1; O2SAT 100
[2017-01-07] MEDS: SODIUM CHLOR 0.9% 1000 ML INJ 1,000 ML IV SCH (20:19)
[2017-01-07 20:57] VITALS: PULSE 49
[2017-01-07] MEDS ORDERED: POTASSIUM CHLORIDE 20 MEQ CONTROLLED RELEASE TAB PO ONE (21:00)
--- NOTE | 2017-01-07 21:35 | EKG ---
Date Performed: 01/07/2017 Time Performed: 16:36:28 PTAGE: 56 years EKG: SINUS BRADYCARDIA VOLTAGE CRITERIA FOR LVH NONSPECIFIC T-WAVE ABNORMALITY ABNORMAL ECG PREVIOUS TRACING : 12/28/2016 03.12 No significant change from previous tracing noted. DOCTOR: Mitchell Phan Interpretating Date/Time 01/07/2017 21:33:59
[2017-01-07] MEDS: TIMOLOL MALEATE 0.5% OPHT SOLN 5 ML BTL EACH EYE SCH (22:20)
[2017-01-07] MEDS: VERAPAMIL HCL 240 MG SUSTAINED RELEASE TAB PO SCH (22:21)
[2017-01-07] MEDS: DOCUSATE SODIUM 50 MG/SENNA 8.6 MG TAB PO SCH (22:21)
[2017-01-07] MEDS: SODIUM CHLORIDE 0.9% FLUSH 10 ML FLUSH IV FLUSH SCH (22:24)
[2017-01-07] MEDS: HEPARIN-D5W 25,000 U/250 ML 250 ML IV PRN (22:36)
[2017-01-07] MEDS: hydrALAZINE HCL 10 MG TAB PO SCH (23:12)
[2017-01-08] VITALS (7 sets, daily range): BP systolic 108–148; BP diastolic 62–81; PULSE 48–65; RESP 14–20; TEMP 97.4–98.3; O2SAT 97–99
[2017-01-08 01:16] LABS: CREATINE KINASE 184 U/L (26-192)
[2017-01-08] MEDS ORDERED: HEPARIN SODIUM - IV 10,000 UNITS/10 ML VIAL IV PRN ×2 (01:30)
[2017-01-08] MEDS ORDERED: HEPARIN SODIUM - IV 10,000 UNITS/10 ML VIAL IV PUSH PRN ×2 (04:15)
[2017-01-08] MEDS: hydrALAZINE HCL 10 MG TAB PO SCH ×3 (05:00→18:45)
[2017-01-08] MEDS: ACETAMINOPHEN/HYDROcodone 325 MG/5 MG TAB PO PRN ×2 (05:02→08:56)
[2017-01-08] MEDS: SODIUM CHLOR 0.9% 1000 ML INJ 1,000 ML IV SCH ×2 (05:39→19:59)
[2017-01-08 06:20] LABS: AUTOMATED NEUTROPHIL # 2.8 TH/MM3 (1.8-7.7); BASOPHIL % 0.5 % (0.0-2.0); EOSINOPHIL # 0.2 TH/MM3 (0-0.4); EOSINOPHIL % 3.4 % (0.0-4.0); HEMATOCRIT 30.7 % (35.0-46.0); HEMO FLAGS DIFF FINAL; LYMPH % 42.4 % (9.0-44.0); LYMPHOCYTE # 2.5 TH/MM3 (1.0-4.8); MEAN CELL VOLUME 90.8 FL (80.0-100.0); MEAN CORPUSCULAR HEMOGLOBIN 31.5 PG (27.0-34.0); MEAN CORPUSCULAR HGB CONC 34.7 % (32.0-36.0); MONO % 5.4 % (0.0-8.0); NEUT % 48.3 % (16.0-70.0); PLATELET COUNT 255 TH/MM3 (150-450); RED BLOOD COUNT 3.38 MIL/MM3 (4.00-5.30); RED CELL DISTRIBUTION WIDTH 13.3 % (11.6-17.2); WHITE BLOOD COUNT 5.8 TH/MM3 (4.0-11.0)
[2017-01-08 06:21] LABS: APTT (PATIENT) 41.8 SEC (24.3-30.1)
[2017-01-08 06:40] LABS: ANION GAP 8 MEQ/L (5-15); AST (GOT) 20 U/L (15-37); BICARBONATE 25.1 MEQ/L (21.0-32.0); BLOOD UREA NITROGEN 13 MG/DL (7-18); CHLORIDE 112 MEQ/L (98-107); GLOMERULAR FILTRATION RATE 89 ML/MIN (>89); POTASSIUM 3.4 MEQ/L (3.5-5.1); SODIUM (NA) 145 MEQ/L (136-145)
[2017-01-08 06:45] LABS: ALKALINE PHOSPHATASE 92 U/L (45-117); ALT (GPT) 26 U/L (10-53); CREATINE KINASE 155 U/L (26-192); TOTAL BILIRUBIN ADULT 0.7 MG/DL (0.2-1.0)
[2017-01-08] MEDS: DOCUSATE SODIUM 50 MG/SENNA 8.6 MG TAB PO SCH ×2 (09:00→19:58)
[2017-01-08] MEDS ORDERED: INFLUENZA VIRUS VACCINE (QUADRIVALENT) 0.5 ML SYR IM ONE (09:00)
[2017-01-08] MEDS: TIMOLOL MALEATE 0.5% OPHT SOLN 5 ML BTL EACH EYE SCH ×2 (09:00→19:59)
[2017-01-08] MEDS ORDERED: POTASSIUM CHLORIDE 10 MEQ CONTROLLED RELEASE TAB PO ONE (12:00)
[2017-01-08] MEDS: VERAPAMIL HCL 240 MG SUSTAINED RELEASE TAB PO SCH ×2 (12:05→19:58)
[2017-01-08] MEDS: ASPIRIN EC 81 MG TABEC PO SCH (12:06)
[2017-01-08] MEDS: SODIUM CHLORIDE 0.9% FLUSH 10 ML FLUSH IV FLUSH SCH ×2 (12:11→19:59)
[2017-01-08 12:40] LABS: APTT (PATIENT) 43.1 SEC (24.3-30.1)
--- NOTE | 2017-01-08 14:31 | MB ---
cc: SANDRA GORMAN MD DATE OF CONSULTATION 01/08/17 REASON FOR CONSULTATION Atypical chest pain. HISTORY OF PRESENT ILLNESS The patient is a very pleasant 56-year-old woman who was recently seen [facility] for atypical chest pain and she had a nonischemic nuclear stress test and was sent home. The patient presented to her primary care physician yesterday with general/vague symptoms of not feeling well and a very mild grabbing sensation in her chest. Her primary care physician directed her to the emergency department where she was admitted and has ruled out for AR. I have been asked to consult regarding further recommendations. Currently, the patient is feeling well without any further complaints. She denies any chest pain currently, shortness of breath, lightheadedness, dizziness. PAST MEDICAL HISTORY Hypertension, former obesity now status post gastric bypass and significant weight loss. Atypical chest pain, hypertension. CURRENT MEDICATIONS 1. Aspirin 81 milligrams daily. 2. Heparin drip. 3. Hydralazine 10 milligrams p.o. q. 6 hours. 4. Verapamil 240 milligrams p.o. b.i.d. ALLERGIES SULFA. TRIMETHOPRIM. PHYSICAL EXAMINATION VITAL SIGNS: Afebrile, pulse 51, respiratory rate 20, BP 123/70, satting 97 on room air. GENERAL: Very pleasant -[place] woman in no distress. NECK: No JVD. LUNGS: Clear to auscultation bilaterally. CARDIOVASCULAR: Regular rate and rhythm. No murmurs appreciated. ABDOMEN: Benign. EXTREMITIES: No edema. LABORATORY DATA White count 5.8, hematocrit 30.7, platelets 255. Sodium 145, potassium 3.4, chloride 112, bicarb 25.1, BUN 13, creatinine 0.81, glucose 83. Cardiac enzymes are negative x3 (and negative times 6 if you include her rule out of AR from 12/27/2016). CARDIOLOGY STUDIES EKG shows sinus rhythm with nonspecific ST changes consistent with LVH, not appreciably different from her EKG last admission. IMPRESSION 1. Atypical chest pain: The patient had mild atypical chest pain and general nonspecific symptoms. Due to second admission for chest pain I think it is reasonable to have her undergo a CTA coronary for one more noninvasive assessment of her coronaries and potentially ischemia. If her CTA shows no significant coronary artery disease that combined with two rule outs of AR and a nonischemic nuclear stress test a week or two ago would satisfy me as to the absence of significant ischemic disease for this patient. I will see her as needed tomorrow and her CTA coronary will be on Tuesday. If her CTA coronary is without significant obstructive disease she could be discharged home thereafter. Thank you again for the opportunity to participate in this patient's care. MD BASSAM Love/ESTELLA /10:53 AM /2:09 PM
--- NOTE | 2017-01-08 22:25 | HHI.PR ---
Subjective Remarks Patient seen today around noon. She denies any chest pain currently. Denies any shortness of breath.denies nausea or vomiting. Objective Vital Signs Date Time Temp Pulse Resp B/P (MAP) Pulse Ox O2 Delivery O2 Flow Rate FiO2 01/08/17 20:00 98.0 48 18 148/71 (96) 98 01/08/17 16:00 98.3 54 20 139/62 (87) 99 01/08/17 12:00 97.9 65 20 147/81 (103) 98 01/08/17 08:49 98.1 51 20 123/70 (87) 97 01/08/17 08:00 48 01/08/17 08:00 96 Room Air 01/08/17 04:00 98.2 54 14 121/70 (87) 98 01/08/17 00:00 97.4 59 16 108/65 (79) 98 01/07/17 23:00 Room Air I/O 01/07/17 01/07/17 01/07/17 01/08/17 01/08/17 01/08/17 07:00 15:00 23:00 07:00 15:00 23:00 Intake Total 677.2 ml 120 ml 1167 ml Balance 677.2 ml 120 ml 1167 ml Intake Oral 120 ml IV Total 677.2 ml 1167 ml # Voids 2 Result Diagram: 01/08/1752301/08/17 05 Objective Remarks GENERAL: patient sitting up in bed. Appears comfortable. Alert and oriented 3. SKIN: Warm and dry. HEAD: Normocephalic. EYES: No scleral icterus. No injection or drainage. NECK: Supple, trachea midline. No JVD. CARDIOVASCULAR: Regular rate and rhythm without murmurs, gallops, or rubs. RESPIRATORY: Breath sounds equal bilaterally. No accessory muscle use. GASTROINTESTINAL: Abdomen soft, non-tender, nondistended. MUSCULOSKELETAL: No cyanosis, or edema. BACK: Nontender without obvious deformity. No CVA tenderness. A/P Assessment and Plan ==== 01/08/17 Troponins negative 3. Recent low risk perfusion scan. Appreciate cardiology consultation. Cardiology recommends CTA on Tuesday. Continue to monitor on telemetry until that time. //Hypokalemia. Potassium 3.4. Mild. Replace. // Chest Pain: R/o ACS. Recent admit 12/28/16 to [facility] for same, s/p Stress Test 12/28/16 negative for ischemia, now w/ ongoing chest pain and abnormal EKG in comparison to previous. Dr. Phan consulted by ER physician, plan is for Cath in am. NPO. Heparin gtt started in ER. NTG/Morphine prn. Check serial cardiac enzymes. ASA, Statin. -Continues on verapamil Cardiology plans for CT coronary angiogram on Tuesday. Continue to monitor on telemetry. // Rhabdomyolysis: Mild. CPK 215. IVF for hydration, check serial CPK for trend. // Hypokalemia: Mild. K+ 3.4, will replace and recheck in am. -Management as above. Continue to monitor. // Renal Insufficiency: Chronic. Creatinine 1.01 on admission, previously 1.31 on 12/27/16. IVF for hydration, repeat labs in am. -01/08. Creatinine 0.8. Improved. // HTN: BP 160-180's on admission, likely compounded by pain complaints -Blood pressure continues acceptable. Continue current medication regimen. // DVT Prophylaxis: Heparin gtt. as per cardiology. Discharge Planning CT coronary angiogram on Tuesday May be able to discharge home pending results of CT coronary angiogram, cardiology clearance Damian Hess MD Jan 08, 2017 22:25
[2017-01-09] VITALS (8 sets, daily range): BP systolic 110–142; BP diastolic 62–97; PULSE 52–70; RESP 18–20; TEMP 97.3–98.5; O2SAT 96–98
[2017-01-09] MEDS: hydrALAZINE HCL 10 MG TAB PO SCH ×4 (00:19→18:22)
[2017-01-09] MEDS: SODIUM CHLOR 0.9% 1000 ML INJ 1,000 ML IV SCH ×3 (01:39→20:57)
[2017-01-09] MEDS: HEPARIN-D5W 25,000 U/250 ML 250 ML IV PRN (06:54)
[2017-01-09] MEDS: TIMOLOL MALEATE 0.5% OPHT SOLN 5 ML BTL EACH EYE SCH ×2 (09:00→20:56)
[2017-01-09] MEDS: SODIUM CHLORIDE 0.9% FLUSH 10 ML FLUSH IV FLUSH SCH ×2 (09:00→20:57)
[2017-01-09] MEDS: DOCUSATE SODIUM 50 MG/SENNA 8.6 MG TAB PO SCH ×2 (09:36→20:56)
[2017-01-09] MEDS: ASPIRIN EC 81 MG TABEC PO SCH (09:36)
[2017-01-09] MEDS: VERAPAMIL HCL 240 MG SUSTAINED RELEASE TAB PO SCH ×2 (09:36→20:56)
[2017-01-09 09:40] LABS: APTT (PATIENT) 39.9 SEC (24.3-30.1)
--- NOTE | 2017-01-09 18:31 | HHI.PR ---
Subjective Remarks Patient seen today around 1 PM. Says she is feeling all right. Denies any chest pain or shortness of breath. Denies any nausea or vomiting. Objective Vital Signs Date Time Temp Pulse Resp B/P (MAP) Pulse Ox O2 Delivery O2 Flow Rate FiO2 01/09/17 16:00 98.5 57 20 132/62 (85) 98 01/09/17 12:00 98.4 57 20 118/71 (87) 96 01/09/17 09:00 Room Air 01/09/17 08:00 98.3 52 20 141/97 (112) 97 01/09/17 07:59 53 01/09/17 04:00 97.3 55 20 136/63 (87) 98 01/09/17 00:00 98.3 53 18 110/65 (80) 97 01/08/17 20:15 Room Air 01/08/17 20:00 98.0 48 18 148/71 (96) 98 01/08/17 20:00 55 I/O 01/08/17 01/08/17 01/08/17 01/09/17 01/09/17 01/09/17 07:00 15:00 23:00 07:00 15:00 23:00 Intake Total 677.2 ml 120 ml 1167 ml 480 ml Output Total 450 ml Balance 677.2 ml 120 ml 1167 ml -450 ml 480 ml Intake Oral 120 ml 480 ml IV Total 677.2 ml 1167 ml Output Urine Total 450 ml # Voids 2 3 # Bowel Movements 1 1 Result Diagram: 01/08/17 0524 01/08/17 0524 Objective Remarks GENERAL: patient sitting up in bed. Appears comfortable. Alert and oriented 3.no change on exam today. SKIN: Warm and dry. HEAD: Normocephalic. EYES: No scleral icterus. No injection or drainage. NECK: Supple, trachea midline. No JVD. CARDIOVASCULAR: Regular rate and rhythm without murmurs, gallops, or rubs. RESPIRATORY: Breath sounds equal bilaterally. No accessory muscle use. GASTROINTESTINAL: Abdomen soft, non-tender, nondistended. MUSCULOSKELETAL: No cyanosis, or edema. BACK: Nontender without obvious deformity. No CVA tenderness. A/P Assessment and Plan ==== 01/09/17 Vitals reviewed, with bradycardia, however stable. Cardiology recommends CTA on Tuesday. Continue to monitor on telemetry until that time. //Hypokalemia. Recheck labs tomorrow. // Chest Pain: R/o ACS. Recent admit 12/28/16 to [facility] for same, s/p Stress Test 12/28/16 negative for ischemia, now w/ ongoing chest pain and abnormal EKG in comparison to previous. Dr. Phan consulted by ER physician, plan is for Cath in am. NPO. Heparin gtt started in ER. NTG/Morphine prn. Check serial cardiac enzymes. ASA, Statin. -Continues on verapamil Cardiology plans for CT coronary angiogram on Tuesday. Continue to monitor on telemetry. // Rhabdomyolysis: Mild. CPK 215. IVF for hydration, resolved on repeat labs. // Hypokalemia: Mild. K+ 3.4, will replace and recheck in am. -Management as above. Continue to monitor. // Renal Insufficiency: Chronic. Creatinine 1.01 on admission, previously 1.31 on 12/27/16. IVF for hydration, repeat labs in am. -01/08. Creatinine 0.8. Resolved. // HTN: BP 160-180's on admission, likely compounded by pain complaints -Blood pressure continues acceptable. Continue current medication regimen. // DVT Prophylaxis: Heparin gtt. as per cardiology. Discharge Planning CT coronary angiogram on Tuesday May be able to discharge home pending results of CT coronary angiogram, cardiology clearance Damian Hess MD Jan 09, 2017 18:31
[2017-01-10] VITALS: BP 113/59; PULSE 51; RESP 17; TEMP 97.7; O2SAT 95
[2017-01-10] MEDS: hydrALAZINE HCL 10 MG TAB PO SCH ×3 (00:22→12:16)
[2017-01-10 04:00] VITALS: BP 142/74; PULSE 54; RESP 18; TEMP 97.8; O2SAT 98
[2017-01-10 05:00] LABS: HEMATOCRIT 33.5 % (35.0-46.0); MEAN CELL VOLUME 91.9 FL (80.0-100.0); MEAN CORPUSCULAR HEMOGLOBIN 31.2 PG (27.0-34.0); MEAN CORPUSCULAR HGB CONC 33.9 % (32.0-36.0); PLATELET COUNT 267 TH/MM3 (150-450); RED BLOOD COUNT 3.65 MIL/MM3 (4.00-5.30); RED CELL DISTRIBUTION WIDTH 13.4 % (11.6-17.2); REVIEW FLAG FINAL
[2017-01-10 05:07] LABS: APTT (PATIENT) 44.6 SEC (24.3-30.1)
[2017-01-10 05:12] LABS: BICARBONATE 26.8 MEQ/L (21.0-32.0); MAGNESIUM 1.8 MG/DL (1.5-2.5)
[2017-01-10 05:20] LABS: POTASSIUM 2.9 MEQ/L (3.5-5.1)
[2017-01-10] MEDS: HEPARIN-D5W 25,000 U/250 ML 250 ML IV PRN (05:34)
[2017-01-10] MEDS ORDERED: POTASSIUM CHLORIDE 10 MEQ CONTROLLED RELEASE TAB PO ONE (06:30)
[2017-01-10] MEDS: SODIUM CHLOR 0.9% 1000 ML INJ 1,000 ML IV SCH (06:47)
[2017-01-10 08:49] VITALS: BP 140/74; PULSE 56; RESP 20; TEMP 98; O2SAT 98
[2017-01-10] MEDS: SODIUM CHLORIDE 0.9% FLUSH 10 ML FLUSH IV FLUSH SCH (09:20)
[2017-01-10] MEDS: TIMOLOL MALEATE 0.5% OPHT SOLN 5 ML BTL EACH EYE SCH (09:20)
[2017-01-10] MEDS: VERAPAMIL HCL 240 MG SUSTAINED RELEASE TAB PO SCH (09:20)
[2017-01-10] MEDS: ASPIRIN EC 81 MG TABEC PO SCH (09:21)
[2017-01-10] MEDS: DOCUSATE SODIUM 50 MG/SENNA 8.6 MG TAB PO SCH (09:21)
[2017-01-10 11:29] VITALS: PULSE 55
[2017-01-10] MEDS ORDERED: NITROGLYCERIN 0.4 MG SL 25 TABS/BTL SL ONE ×2 (14:00→14:07)
[2017-01-10] MEDS ORDERED: IOHEXOL 350 MG/ML 10 ML VIAL (for RAD DIAG) IVCONTRAST ONE (14:02)
--- NOTE | 2017-01-10 16:03 | RADRPT ---
EXAM DATE/TIME: 01/10/2017 13:44 [place] COMPARISON: No previous studies available for comparison. INDICATIONS : Left sided chest pain for three days. IV CONTRAST: 90 cc Omnipaque 350 (iohexol) IV RADIATION DOSE: 3.41 CTDIvol (mGy) ; Patient body habitus MEDICAL HISTORY : Hypertension. SURGICAL HISTORY : Gastric bypass. Hysterectomy. ENCOUNTER: Initial ACUITY: 1 day PAIN SCALE: 0/10 LOCATION: Bilateral chest TECHNIQUE: Volumetric scanning was obtained through the heart. Images were acquired on a multislice multiple ro w detector helical scanner timed for acquisition during peak arterial contrast. Images were reconstr ucted using a retrospective gating algorithm including single sector and multi-sector algorithms at m ultiple phases of the cardiac cycle. Images were interpreted using a combination of 2D and 3D visual ization modes including curved planar reformation, thin slab maximum intensity projection and volume rendering. Using automated exposure control and adjustment of the mA and/or kV according to patient size, radiation dose was kept as low as reasonably achievable to obtain optimal diagnostic quality im ages. DICOM format image data is available electronically for review and comparison. FINDINGS: VESSEL ANALYSIS: DOMINANCE: The coronary system is left dominant. LEFT MAIN: Normal vessel without calcification or stenosis. LAD: Normal vessel without calcification or stenosis. CIRCUMFLEX: Normal vessel without calcification or stenosis. RCA: Normal vessel without calcification or stenosis. OTHER: There is a 6 mm nodule pleural-based posterior le the right lung. Followup CT scan in 6 months is re commended. CONCLUSION: 1. Negative CT angiography of the coronary vasculature 2. 6 mm nodule right base. Followup CT scan in 6 months is recommended. Siddharth Rosario MD on January 10, 2017 at 15:58 Board Certified Radiologist. This report was verified electronically.
[2017-01-10] MEDS ORDERED: OMEP40CA2 PO (16:31)
[2017-01-10] MEDS ORDERED: POTA10CA PO (16:41)
--- NOTE | 2017-01-10 16:59 | HHI.PR ---
Subjective Remarks Patient seen this morning around 10 AM. Denies any chest pain or shortness of breath. Says she feels well. Objective Vital Signs Date Time Temp Pulse Resp B/P (MAP) Pulse Ox O2 Delivery O2 Flow Rate FiO2 01/10/17 11:29 55 01/10/17 09:25 Room Air 01/10/17 08:49 98.0 56 20 140/74 (96) 98 01/10/17 04:00 Room Air 01/10/17 04:00 97.8 54 18 142/74 (96) 98 01/10/17 00:00 Room Air 01/10/17 00:00 97.7 51 17 113/59 (77) 95 01/09/17 21:00 Room Air 01/09/17 20:25 70 01/09/17 20:00 98.2 68 18 142/70 (94) 98 I/O 01/09/17 01/09/17 01/09/17 01/10/17 01/10/17 01/10/17 06:59 14:59 22:59 06:59 14:59 22:59 Intake Total 480 ml 130 ml 1606 ml Output Total 450 ml Balance -450 ml 480 ml 130 ml 1606 ml Intake Oral 480 ml 650 ml IV Total 130 ml 956 ml Output Urine Total 450 ml # Voids 3 7 # Bowel Movements 1 1 2 Result Diagram: 01/10/17 0439 01/10/17 0439 Objective Remarks GENERAL: patient sitting up in bed. Appears comfortable. Alert and oriented 3.again, no change on exam today. SKIN: Warm and dry. HEAD: Normocephalic. EYES: No scleral icterus. No injection or drainage. NECK: Supple, trachea midline. No JVD. CARDIOVASCULAR: Regular rate and rhythm without murmurs, gallops, or rubs. RESPIRATORY: Breath sounds equal bilaterally. No accessory muscle use. GASTROINTESTINAL: Abdomen soft, non-tender, nondistended. MUSCULOSKELETAL: No cyanosis, or edema. BACK: Nontender without obvious deformity. No CVA tenderness. A/P Assessment and Plan ==== 01/10/17 CTA coronaries reviewed. No indication of coronary artery disease //Hypokalemia 2.9. Replaced. Give potassium 10 any cues for 7 days. Repeat lab within several days to be sent to primary care. Follow-up with primary care. // Chest Pain: R/o ACS. Recent admit 12/28/16 to [facility] for same, s/p Stress Test 12/28/16 negative for ischemia, now w/ ongoing chest pain and abnormal EKG in comparison to previous. Dr. Phan consulted by ER physician, plan is for Cath in am. NPO. Heparin gtt started in ER. NTG/Morphine prn. Check serial cardiac enzymes. ASA, Statin. -Continues on verapamil Cardiology plans for CT coronary angiogram on Tuesday. Continue to monitor on telemetry. = Negative CTA coronaries. // Rhabdomyolysis: Mild. CPK 215. IVF for hydration, resolved on repeat labs. // Hypokalemia: Mild. K+ 3.4, will replace and recheck in am. -Management as above. Continue to monitor. // Renal Insufficiency: Chronic. Creatinine 1.01 on admission, previously 1.31 on 12/27/16. IVF for hydration, repeat labs in am. -01/08. Creatinine 0.8. Resolved. // HTN: BP 160-180's on admission, likely compounded by pain complaints -Blood pressure continues acceptable. Continue current medication regimen. // DVT Prophylaxis: Heparin gtt. as per cardiology. Discharge Planning CT coronary angiogram negative. Discharge home. -Repeat electrolytes as outpatient. Follow-up with primary care -start PPI for presumed GERD follow-up with primary care. Damian Hess MD Jan 10, 2017 16:59
[2017-01-10] MEDS ORDERED: HEPARIN-D5W 25,000 U/250 ML 250 ML IV PRN (17:00)
--- NOTE | 2017-01-10 17:06 | HHI.DS ---
Discharge Summary Admission Date Jan 07, 2017 at 19:36 Discharge Date: Jan 10, 2017 Admitting Diagnosis chest pain (1) Chest pain ICD Code: R07.9 - Chest pain, unspecified (2) Hypokalemia ICD Code: E87.6 - Hypokalemia (3) Rhabdomyolysis ICD Code: M62.82 - Rhabdomyolysis (4) Renal insufficiency ICD Code: N28.9 - Disorder of kidney and ureter, unspecified (5) HTN (hypertension) ICD Code: I10 - Essential (primary) hypertension Procedures no invasive procedures. Brief History - From Admission This is a 69-year-old female with a PMH of HTN who was referred to the ER by her PCP for complaints of chest pain. Recent admit [facility], Stress Test 12/28/16 w/ no evidence of ischemia, normal wall motion and EF 70%, Low Risk. States has been having ongoing chest pain since that time. Denies fever, chills, SOB or sick contacts. On arrival, BP 183/102, HR 62, O2 sat 100% on RA, Afebrile. CBC unremarkable. K+ 3.4. Creatinine 1.01, previously 1.31 on 12/27/16. CPK 215. Trop negative. EKG w/ new T-wave inversions V1 and V2 in comparison to previous EKG. Dr. Phan consulted by ER physician, Heparin gtt and NPO for Cath in am. CBC/BMP: 01/10/17 0439 01/10/17 0439 Significant Findings Laboratory Tests Test 01/07/17 18:20 01/08/17 00:25 01/08/17 05:24 01/08/17 11:49 Activated Partial Thromboplast Time 31.0 SEC (24.3-30.1) 41.8 SEC (24.3-30.1) 43.1 SEC (24.3-30.1) Troponin I LESS THAN 0.02 NG/ML LESS THAN 0.02 NG/ML Red Blood Count 3.38 MIL/MM3 (4.00-5.30) Hemoglobin 10.6 GM/DL (11.6-15.3) Hematocrit 30.7 % (35.0-46.0) Total Protein 6.1 GM/DL (6.4-8.2) Albumin 3.1 GM/DL (3.4-5.0) Calcium Level 8.4 MG/DL (8.5-10.1) Potassium Level 3.4 MEQ/L (3.5-5.1) Chloride Level 112 MEQ/L (98-107) Test 01/09/17 08:00 01/10/17 04:39 Activated Partial Thromboplast Time 39.9 SEC (24.3-30.1) 44.6 SEC (24.3-30.1) Red Blood Count 3.65 MIL/MM3 (4.00-5.30) Hemoglobin 11.4 GM/DL (11.6-15.3) Hematocrit 33.5 % (35.0-46.0) Albumin 3.2 GM/DL (3.4-5.0) Calcium Level 8.3 MG/DL (8.5-10.1) Potassium Level 2.9 MEQ/L (3.5-5.1) Chloride Level 109 MEQ/L (98-107) Estimat Glomerular Filtration Rate 86 ML/MIN (>89) Imaging Last Impressions Chest X-Ray 01/07/17 1712 Signed Impressions: Service Date/Time: Saturday, January 07, 2017 17:41 - CONCLUSION: 1. No acute cardiopulmonary findings. Travis Coburn MD Hospital Course Troponin ordered and negative. No acute changes on EKG. Cardiology was consult to, recommended CT coronary angiogram which was performed and negative. Patient was discharged home with PPI for presumed GERD. Hospitalization was complicated by hypokalemia, which was replaced. Follow-up with primary care. For problem-based summary from most recent progress note, please see below.. ==== 01/10/17 CTA coronaries reviewed. No indication of coronary artery disease //Hypokalemia 2.9. Replaced. Give potassium 10 any cues for 7 days. Repeat lab within several days to be sent to primary care. Follow-up with primary care. // Chest Pain: R/o ACS. Recent admit 12/28/16 to [facility] for same, s/p Stress Test 12/28/16 negative for ischemia, now w/ ongoing chest pain and abnormal EKG in comparison to previous. Dr. Phan consulted by ER physician, plan is for Cath in am. NPO. Heparin gtt started in ER. NTG/Morphine prn. Check serial cardiac enzymes. ASA, Statin. -Continues on verapamil Cardiology plans for CT coronary angiogram on Tuesday. Continue to monitor on telemetry. = Negative CTA coronaries. // Rhabdomyolysis: Mild. CPK 215. IVF for hydration, resolved on repeat labs. // Hypokalemia: Mild. K+ 3.4, will replace and recheck in am. -Management as above. Continue to monitor. // Renal Insufficiency: Chronic. Creatinine 1.01 on admission, previously 1.31 on 12/27/16. IVF for hydration, repeat labs in am. -01/08. Creatinine 0.8. Resolved. // HTN: BP 160-180's on admission, likely compounded by pain complaints -Blood pressure continues acceptable. Continue current medication regimen. // DVT Prophylaxis: Heparin gtt. as per cardiology. Discharge Planning CT coronary angiogram negative. Discharge home. -Repeat electrolytes as outpatient. Follow-up with primary care -start PPI for presumed GERD follow-up with primary care. Pt Condition on Discharge: Good Discharge Disposition: Discharge Home Discharge Time: > 30 minutes Discharge Instructions DIET: Follow Instructions for: Heart Healthy Diet Activities you can perform: Regular-No Restrictions Follow up Referrals: PCP Follow-up - 3-5 Days with Timothy Ritchie MD New Orders: BASIC METABOLIC PROF - 2-3 Days New Medications: Omeprazole (Omeprazole) 40 Mg Cap 40 MG PO DAILY for Reflux, #30 CAP 0 Refills Potassium Chloride ER (Potassium Chloride ER) 10 Meq Cap 10 MEQ PO DAILY for Electrolyte Replacement, #7 CAP 0 Refills Continued Medications: Hydralazine HCl (Hydralazine HCl) 10 Mg Tablet 10 MG PO Q6HR for Blood Pressure Management for 30 Days, TAB 1 Refill Timolol Opth Drops (Timolol Opth Drops) 0.5 % Soln 1 DROP EACH EYE BID for Glaucoma, #1 BOTTLE 0 Refills Verapamil (Verapamil) 120 Mg Tab 240 MG PO BID, #60 TAB 0 Refills Damian Hess MD Jan 10, 2017 17:06
[2017-01-10 17:18] VITALS: BP 117/73; PULSE 56; RESP 16; TEMP 97.9; O2SAT 99
[2017-01-10 17:47] LABS: APTT (PATIENT) 37.8 SEC (24.3-30.1)
== END 2017-01-10 17:51 | disposition home or self-care (01) | DRG 392 ==
LOC: NEPE 16:14 → NEDA 19:36 → N04B 20:28
PROVIDERS: ADMIT Internal Medicine; ATTEND Internal Medicine
DX: K21.9 Gastro-esophageal reflux disease without esophagitis (principal); M62.82 Rhabdomyolysis; E87.6 Hypokalemia; N18.9 Chronic kidney disease, unspecified; I12.9 Hypertensive chronic kidney disease with stage 1 through stage 4 chronic kidney disease, or unspecified chronic kidney disease; E78.00 Pure hypercholesterolemia, unspecified; R00.1 Bradycardia, unspecified; R07.89 Other chest pain; Z98.84 Bariatric surgery status; Z23 Encounter for immunization
CPT/HCPCS: 71010; 75574; 76937; 80048; 80053; 80069; 82550; 82552; 83735; 84132; 84484; 85025; 85027; 85610; 85730; 90686; 93005; J1644; J7030; Q2038; Q9967

== ENCOUNTER 2017-09-01 18:31 | Inpatient (IN) | payer MEDICAID, OTHER ==
[~2017-09-01] VITALS: Ht 162.6 cm; Wt 75.0 kg
[~2017-09-01 18:31] MED LIST changes: +OMEP40CA2 PO; +POTA10CA PO
[2017-09-01 18:53] VITALS: BP 191/90; PULSE 52; RESP 18; TEMP 98.3; O2SAT 97
[2017-09-01] MEDS ORDERED: VERA80TA PO (19:52)
[2017-09-01] MEDS ORDERED: BISO5TAB2 PO (19:52)
[2017-09-01 19:53] VITALS: BP 173/96; PULSE 48; RESP 16; O2SAT 100
[2017-09-01] MEDS ORDERED: SODIUM CHLORIDE 0.9% FLUSH 10 ML FLUSH IVF PRN (20:00)
[2017-09-01] MEDS ORDERED: ASPIRIN 81 MG CHEW TAB PO ONE (20:00)
[2017-09-01] MEDS: NITROGLYCERIN 0.4 MG SL 25 TABS/BTL SL SCH ×3 (20:05→20:36)
--- NOTE | 2017-09-01 20:31 | PD ---
HPI Chief Complaint: Chest Pain Time Seen by Provider: 19:57 Travel History International Travel<30 days: No Contact w/Intl Traveler<30days: No Traveled to known affect area: No History of Present Illness HPI 57-year-old female presents to the emergency department for complaint of 4/10 left sided chest discomfort and 3/10 left upper extremity discomfort with tingling since 1:30 PM this evening. Patient states symptoms are persistent. Patient denies any associated shortness of breath sweats nausea vomiting or referred neck jaw mid scapular abdominal pain. Patient states yesterday had similar type symptoms however did have right jaw pain. Symptoms resolved spontaneously yesterday. Due to ongoing symptoms today decided to come to the emergency room for evaluation. Patient does have history of hypertension. Patient is status post gastric bypass and is no longer treated for dyslipidemia or diabetes. Patient denies tobacco use or family history of premature onset heart disease. Patient states that she does not smoke cigarettes. Patient denies any known injury. Patient does not report range of motion of the upper extremity or neck precipitating any symptoms. No reported fever or chills. Patient is unable to identify exacerbating or alleviating factors. Patient has been compliant with her medications. Patient denies orthopnea PND lower extremity pain or swelling. Patient is taken no aspirin prior to arrival to the emergency department. PFSH Past Medical History Narrative Medical Hypertension dyslipidemia diet-controlled diabetes gastric bypass hysterectomy Cancer: No Cardiovascular Problems: Yes High Cholesterol: Yes Diabetes: Yes (HX OF) Patient Takes Glucophage: No Diminished Hearing: No Endocrine: Yes Genitourinary: No Hepatitis: No Hiatal Hernia: No Hypertension: Yes Immune Disorder: No Musculoskeletal: No Neurologic: No Psychiatric: No Reproductive: No Respiratory: No Immunizations Current: Yes Sleep Apnea: No Thyroid Disease: No Tetanus Vaccination: > 5 Years Influenza Vaccination: Yes Menopausal: Yes : 3 Para: 3 Past Surgical History Abdominal Surgery: Yes (GASTRIC BYPASS 2012) AICD: No Body Medical Devices: NONE Cardiac Surgery: No Ear Surgery: No Endocrine Surgery: No Eye Surgery: No Genitourinary Surgery: No Gynecologic Surgery: Yes (HYSTERECTOMY 1994) Hysterectomy: Yes Joint Replacement: No Oral Surgery: No Pacemaker: No Thoracic Surgery: No Other Surgery: Yes Social History Alcohol Use: No Tobacco Use: No Substance Use: No Allergies-Medications (Allergen,Severity, Reaction): Coded Allergies: sulfamethoxazole (Unverified Adverse Reaction, Mild, FALL ASLEEP AND LOSS OF APPETITE, 01/07/17) trimethoprim (Unverified Adverse Reaction, Mild, FALL ASLEEP AND LOSS OF APPETITE, 01/07/17) Reported Meds & Prescriptions Reported Meds & Active Scripts Active Reported Bisoprolol-Hydrochlorothiazide 5-6.25 Mg Tab 1 Tab PO DAILY Verapamil (Verapamil HCl) 80 Mg Tab 80 Mg PO BID Timolol Opth Drops 0.5 % Soln 1 Drop EACH EYE BID Review of Systems Except as stated in HPI: all other systems reviewed are Neg General / Constitutional: No: Fever, Chills Eyes: No: Visual changes HENT: No: Headaches, Lightheadedness, Neck Pain Cardiovascular: Positive: Chest Pain or Discomfort, No: Palpitations, Diaphoresis, Syncope, Dyspnea on exertion, Edema Respiratory: No: Cough, Shortness of Breath, Wheezing Gastrointestinal: No: Nausea, Vomiting, Abdominal Pain Genitourinary: No: Dysuria, Decreased Urinary Output Musculoskeletal: No: Myalgias, Arthralgias Skin: No Rash Neurologic: No: Weakness, Dizziness Psychiatric: No: Anxiety Hematologic/Lymphatic: No: Lymph Node Enlargement Physical Exam Narrative GENERAL: Well-developed well-nourished female no acute distress no respiratory distress SKIN: Warm and dry. HEAD: Normocephalic. EYES: No scleral icterus. No injection or drainage. NECK: Supple, trachea midline. No JVD or lymphadenopathy. CARDIOVASCULAR: Regular rate and rhythm without murmurs, gallops, or rubs. RESPIRATORY: Breath sounds equal bilaterally. No accessory muscle use. GASTROINTESTINAL: Abdomen soft, non-tender, nondistended. MUSCULOSKELETAL: No cyanosis, or edema. Radial and dorsalis pedis pulses 2+ to palpation bilaterally BACK: Nontender without obvious deformity. No CVA tenderness. Data Data Last Documented VS Vital Signs Date Time Temp Pulse Resp B/P (MAP) Pulse Ox O2 Delivery O2 Flow Rate FiO2 09/01/17 19:53 48 16 173/96 (121) 100 Room Air 09/01/17 18:53 98.3 Orders Orders Electrocardiogram (09/01/17 ) Basic Metabolic Panel (Bmp) (09/01/17 19:57) Ckmb (Isoenzyme) Profile (09/01/17 19:57) Complete Blood Count With Diff (09/01/17 19:57) Magnesium (Mg) (09/01/17 19:57) Prothrombin Time / Inr (Pt) (09/01/17 19:57) Act Partial Throm Time (Ptt) (09/01/17 19:57) Troponin I (09/01/17 19:57) Ecg Monitoring (09/01/17 19:57) Bilateral Bp Monitoring (09/01/17 19:57) Iv Access Insert/Monitor (09/01/17 19:57) Oximetry (09/01/17 19:57) Oxygen Administration (09/01/17 19:57) Aspirin Chew (Aspirin Chew) (09/01/17 20:00) Sodium Chloride 0.9% Flush (Ns Flush) (09/01/17 20:00) Nitroglycerin Sl (Nitrostat Sl) (09/01/17 20:00) Chest, Pa & Lat (09/01/17 19:57) Sodium Chlor 0.9% 1000 Ml Inj (Ns 1000 M (09/01/17 20:00) CKMB (09/01/17 20:30) CKMB% (09/01/17 20:30) Nitroglycerin 2% Oint (Nitroglycerin 2% (09/01/17 21:45) Heparin Inj (Heparin Inj) (09/01/17 21:45) Heparin-D5w 25,000 U/250 Ml (Heparin-D5w (09/01/17 21:45) Act Partial Throm Time (Ptt) (09/01/17 21:35) Cbc No Diff, Includes Plts (09/01/17 21:35) Cbc No Diff, Includes Plts (09/04/17 06:00) Act Partial Throm Time (Ptt) (09/02/17 04:35) Occult Blood (Hemoccult) Stool (09/01/17 21:35) Labs Laboratory Tests Test 09/01/17 20:30 White Blood Count 7.5 TH/MM3 Red Blood Count 4.18 MIL/MM3 Hemoglobin 12.3 GM/DL Hematocrit 37.1 % Mean Corpuscular Volume 89.0 FL Mean Corpuscular Hemoglobin 29.6 PG Mean Corpuscular Hemoglobin Concent 33.2 % Red Cell Distribution Width 13.4 % Platelet Count 345 TH/MM3 Mean Platelet Volume 7.9 FL Neutrophils (%) (Auto) 53.5 % Lymphocytes (%) (Auto) 37.5 % Monocytes (%) (Auto) 5.1 % Eosinophils (%) (Auto) 3.0 % Basophils (%) (Auto) 0.9 % Neutrophils # (Auto) 4.0 TH/MM3 Lymphocytes # (Auto) 2.8 TH/MM3 Monocytes # (Auto) 0.4 TH/MM3 Eosinophils # (Auto) 0.2 TH/MM3 Basophils # (Auto) 0.1 TH/MM3 CBC Comment DIFF FINAL Differential Comment Prothrombin Time 10.8 SEC Prothromb Time International Ratio 1.1 RATIO Activated Partial Thromboplast Time 29.9 SEC Blood Urea Nitrogen 13 MG/DL Creatinine 0.95 MG/DL Random Glucose 75 MG/DL Calcium Level 9.4 MG/DL Magnesium Level 2.2 MG/DL Sodium Level 143 MEQ/L Potassium Level 3.8 MEQ/L Chloride Level 109 MEQ/L Carbon Dioxide Level 25.5 MEQ/L Anion Gap 9 MEQ/L Estimat Glomerular Filtration Rate 73 ML/MIN Total Creatine Kinase 246 U/L Creatine Kinase MB 3.1 NG/ML Creatine Kinase MB % 1.3 % Troponin I 0.66 NG/ML [facility] Medical Decision Making Medical Screen Exam Complete: Yes Emergency Medical Condition: Yes Medical Record Reviewed: Yes Interpretation(s) EKG: sinus bradycardia rate 54 with T-wave changes noted anteroseptally c/w ischemia Differential Diagnosis Chest pain, ACS, UT, uncontrolled hypertension, hypertensive urgency, esophageal spasm, gastritis pancreatitis cholecystitis Narrative Course Patient placed on telemetry monitor IV access obtained specimens collected and sent for resulting; patient administered aspirin 162 mg by mouth chewed as well as sublingual nitroglycerin 0.4 mg per protocol At 9:40 PM troponin I 0.66, elevated, pain 0/10 in intensity; patient administered Nitropaste 1 inch to the chest wall as well as heparinization; patient is aware of plan for admission; call placed to [facility] service--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 call placed to [facility] service for admission Physician Communication Physician Communication call placed to [facility] service Diagnosis Primary Impression: Non-ST elevated myocardial infarction (non-STEMI) Admitting Information Admitting Physician Requests: Admit Tiara Sampson MD September 01, 2017 20:30
[2017-09-01] MEDS: SODIUM CHLOR 0.9% 1000 ML INJ 1,000 ML IV SCH (20:35)
--- NOTE | 2017-09-01 20:39 | RADRPT ---
EXAM DATE: 09/01/2017 8:28 PM EDT AGE/SEX: 57 years / Female INDICATIONS: Chest pain CLINICAL DATA: This is the patient's initial encounter. Patient reports that signs and symptoms have been present for 3 days and indicates a pain score of 5/10. MEDICAL/SURGICAL HISTORY: Hypertension. Hysterectomy. Gastric bypass. COMPARISON: No prior [facility] exams available for comparison. FINDINGS: PA and lateral views of the chest demonstrate the lungs to be symmetrically aerated without evidence of mass, infiltrate or effusion. The cardiomediastinal contours are unremarkable. Osseous structures are intact. CONCLUSION: No acute cardiopulmonary disease. Electronically signed by: Pedro uBck MD 09/01/2017 8:38 PM EDT
[2017-09-01 20:45] LABS: BASOPHIL # 0.1 TH/MM3 (0-0.2); BASOPHIL % 0.9 % (0.0-2.0); EOSINOPHIL # 0.2 TH/MM3 (0-0.4); HEMATOCRIT 37.1 % (35.0-46.0); HEMOGLOBIN 12.3 GM/DL (11.6-15.3); LYMPH % 37.5 % (9.0-44.0); LYMPHOCYTE # 2.8 TH/MM3 (1.0-4.8); MEAN CORPUSCULAR HEMOGLOBIN 29.6 PG (27.0-34.0); MEAN CORPUSCULAR HGB CONC 33.2 % (32.0-36.0); MEAN PLATELET VOLUME 7.9 FL (7.0-11.0); MONO % 5.1 % (0.0-8.0); MONOCYTE # 0.4 TH/MM3 (0-0.9); NEUT % 53.5 % (16.0-70.0); PLATELET COUNT 345 TH/MM3 (150-450); RED BLOOD COUNT 4.18 MIL/MM3 (4.00-5.30); RED CELL DISTRIBUTION WIDTH 13.4 % (11.6-17.2); WHITE BLOOD COUNT 7.5 TH/MM3 (4.0-11.0)
[2017-09-01 20:55] LABS: INTERNATIONAL NORMALIZED RATIO 1.1 RATIO; PROTHROMBIN TIME - PATIENT 10.8 SEC (9.8-11.6)
[2017-09-01 21:00] VITALS: BP 157/79; PULSE 51; RESP 16; O2SAT 99
[2017-09-01 21:12] LABS: BICARBONATE 25.5 MEQ/L (21.0-32.0); CALCIUM 9.4 MG/DL (8.5-10.1); CREATININE 0.95 MG/DL (0.50-1.00); MAGNESIUM 2.2 MG/DL (1.5-2.5)
[2017-09-01 21:29] LABS: TROPONIN I 0.66 NG/ML (0.02-0.05)
[2017-09-01] MEDS ORDERED: HEPARIN SODIUM - IV 10,000 UNITS/10 ML VIAL IV PUSH ONE (21:45)
[2017-09-01] MEDS ORDERED: NITROGLYCERIN 2% OINT 1 GM PACKET TOPICAL ONE (21:45)
[2017-09-01] MEDS ORDERED: HEPARIN-D5W 25,000 U/250 ML 250 ML IV PRN (21:45)
[2017-09-01] MEDS ORDERED: BISACODYL 10 MG SUPP RECTAL PRN (22:00)
[2017-09-01] MEDS ORDERED: MAGNESIUM HYDROXIDE SUSP 30 ML CUP PO PRN (22:00)
[2017-09-01] MEDS ORDERED: SODIUM CHLORIDE 0.9% FLUSH 10 ML FLUSH IV FLUSH PRN (22:00)
[2017-09-01] MEDS ORDERED: LACTULOSE SYRUP 20 GM/30 ML CUP PO PRN (22:00)
[2017-09-01] MEDS ORDERED: NALOXONE HCL 0.4 MG/ML AMP IV PUSH PRN (22:00)
[2017-09-01] MEDS ORDERED: SENNOSIDES 8.6 MG TAB PO PRN (22:00)
[2017-09-01 22:27] VITALS: O2SAT 99
--- NOTE | 2017-09-01 22:27 | HHI.HP ---
[facility] No Primary Care Physician Admission Diagnosis Nstemi Diagnoses: Chief Complaint: Chest pain Travel History International Travel<30 Days: No Contact w/Intl Traveler <30 Da: No Traveled to Known Affected Are: No History of Present Illness Ms. Caceres is a pleasant 57-year-old -[place] female with a history of hypertension, gastric bypass surgery and previously diagnosed diabetes mellitus who presents to the emergency department on 09/01/2017 due to 3 day duration of chest pain. 3 days prior to this admission, patient was sitting and suddenly developed left-sided chest pressure with radiation to her jaw. She had some nausea as well. However she did not have any diaphoresis. She continued to have chest pain off and on for the last 3 days and today due to worsening chest pain her daughter advised her to come to the emergency department. Today patient had tingling sensation in her left arm as well. Patient does not use aspirin on a regular basis. At the time of this interview, patient is chest pain-free. No cough, abdominal pain, fever or chills. No changes in bowel or bladder habits. First troponin was 0.66. Review of Systems Except as stated in HPI: all other systems reviewed are Neg Past Family Social History Past Medical History Hypertension Diabetes mellitus resolved after gastric bypass surgery. Currently does not take any medications. Past Surgical History Gastric bypass surgery, hysterectomy Reported Medications Bisoprolol-Hydrochlorothiazide 5-6.25 Mg Tab 1 Tab PO DAILY Verapamil (Verapamil HCl) 80 Mg Tab 80 Mg PO BID Timolol Opth Drops 0.5 % Soln 1 Drop EACH EYE BID Allergies: Coded Allergies: sulfamethoxazole (Unverified Adverse Reaction, Mild, FALL ASLEEP AND LOSS OF APPETITE, 01/07/17) trimethoprim (Unverified Adverse Reaction, Mild, FALL ASLEEP AND LOSS OF APPETITE, 01/07/17) Family History Mother and sister with diabetes mellitus. Social History Patient denies using tobacco, alcohol, illicit drugs. Physical Exam Vital Signs Vital Signs Date Time Temp Pulse Resp B/P (MAP) Pulse Ox O2 Delivery O2 Flow Rate FiO2 09/01/17 21:00 51 16 157/79 (105) 99 Room Air 09/01/17 19:53 48 16 173/96 (121) 100 Room Air 09/01/17 18:53 98.3 52 18 191/90 (123) 97 Physical Exam GENERAL: This is a well-nourished, well-developed patient, in no apparent distress. SKIN: No rashes, ecchymoses or lesions. Warm and dry. HEAD: Atraumatic. Normocephalic. No temporal or scalp tenderness. EYES: Pupils equal round and reactive. No injection or drainage. ENT: Nose without bleeding, purulent drainage or septal hematoma. Airway patent. NECK: Trachea midline. No lymphadenopathy. Supple, nontender, no meningeal signs. CARDIOVASCULAR: Regular rhythm, bradycardic without murmurs, gallops, or rubs. No JVD. RESPIRATORY: Clear to auscultation. Breath sounds equal bilaterally. No wheezes , rales, or rhonchi. GASTROINTESTINAL: Abdomen soft, non-tender, nondistended. No guarding. MUSCULOSKELETAL: Extremities without clubbing, cyanosis, or edema. NEUROLOGICAL: Awake and alert. Cranial nerves II through XII intact. No focal neurological deficits. Normal speech. Laboratory Laboratory Tests Test 09/01/17 20:30 White Blood Count 7.5 Red Blood Count 4.18 Hemoglobin 12.3 Hematocrit 37.1 Mean Corpuscular Volume 89.0 Mean Corpuscular Hemoglobin 29.6 Mean Corpuscular Hemoglobin Concent 33.2 Red Cell Distribution Width 13.4 Platelet Count 345 Mean Platelet Volume 7.9 Neutrophils (%) (Auto) 53.5 Lymphocytes (%) (Auto) 37.5 Monocytes (%) (Auto) 5.1 Eosinophils (%) (Auto) 3.0 Basophils (%) (Auto) 0.9 Neutrophils # (Auto) 4.0 Lymphocytes # (Auto) 2.8 Monocytes # (Auto) 0.4 Eosinophils # (Auto) 0.2 Basophils # (Auto) 0.1 CBC Comment DIFF FINAL Differential Comment Prothrombin Time 10.8 Prothromb Time International Ratio 1.1 Activated Partial Thromboplast Time 29.9 Blood Urea Nitrogen 13 Creatinine 0.95 Random Glucose 75 Calcium Level 9.4 Magnesium Level 2.2 Sodium Level 143 Potassium Level 3.8 Chloride Level 109 Carbon Dioxide Level 25.5 Anion Gap 9 Estimat Glomerular Filtration Rate 73 Total Creatine Kinase 246 Creatine Kinase MB 3.1 Creatine Kinase MB % 1.3 Troponin I 0.66 Result Diagram: 09/01/17202909/01/172029 Imaging Last Impressions Chest X-Ray 09/01/171956 Signed Impressions: CONCLUSION: No acute cardiopulmonary disease. Caprini VTE Risk Assessment Caprini VTE Risk Assessment: Mod/High Risk (score >= 2) Caprini Risk Assessment Model Point Value = 1 Point Value = 2 Point Value = 3 Point Value = 5 Age 41-60 Minor surgery BMI > 25 kg/m2 Swollen legs Varicose veins or History of unexplained or recurrent spontaneous Oral contraceptives or hormone replacement Sepsis (< 1 month) Serious lung disease, including pneumonia (< 1 month) Abnormal pulmonary function Acute myocardial infarction Congestive heart failure (< 1 month) History of inflammatory bowel disease Medical patient at bed rest Age 61-74 Arthroscopic surgery Major open surgery (> 45 min) Laparoscopic surgery (> 45 min) Malignancy Confined to bed (> 72 hours) Immobilizing plaster cast Central venous access Age >= 75 History of VTE Family history of VTE Factor V Leiden Prothrombin [id number] Lupus anticoagulant Anticardiolipin antibodies Elevated serum homocysteine Heparin-induced thrombocytopenia Other congenital or acquired thrombophilia Stroke (< 1 month) Elective arthroplasty Hip, pelvis, or leg fracture Acute spinal cord injury (< 1 month) Prophylaxis Regimen Total Risk Factor Score Risk Level Prophylaxis Regimen 0-1 Low Early ambulation 2 Moderate Order ONE of the following: *Sequential Compression Device (SCD) *Heparin 5000 units SQ BID 3-4 Higher Order ONE of the following medications: *Heparin 5000 units SQ TID *Enoxaparin/Lovenox 40 mg SQ daily (WT < 150 kg, CrCl > 30 mL/min) *Enoxaparin/Lovenox 30 mg SQ daily (WT < 150 kg, CrCl > 10-29 mL/min) *Enoxaparin/Lovenox 30 mg SQ BID (WT < 150 kg, CrCl > 30 mL/min) AND/OR *Sequential Compression Device (SCD) 5 or more Highest Order ONE of the following medications: *Heparin 5000 units SQ TID (Preferred with Epidurals) *Enoxaparin/Lovenox 40 mg SQ daily (WT < 150 kg, CrCl > 30 mL/min) *Enoxaparin/Lovenox 30 mg SQ daily (WT < 150 kg, CrCl > 10-29 mL/min) *Enoxaparin/Lovenox 30 mg SQ BID (WT < 150 kg, CrCl > 30 mL/min) AND *Sequential Compression Device (SCD) Assessment and Plan Problem List: (1) Non-ST elevated myocardial infarction (non-STEMI) ICD Code: I21.4 - Non-ST elevation (NSTEMI) myocardial infarction Status: Acute (2) HTN (hypertension) ICD Code: I10 - Essential (primary) hypertension Assessment and Plan Ms. Caceres is a 57-year-old -[place] female with a history of hypertension, previously diagnosed diabetes mellitus who presents to the emergency department on 09/01/2017 due to 3 day duration of typical chest pain. She complained of left-sided chest pressure with radiation to jaw and left arm. She also had associated nausea. Upon insistence of her daughter, patient decided to come to the emergency department due to worsening chest pain. Non-ST elevation myocardial infarction -Nitroglycerin for chest pain. Heart rate is in the 40s. -Will provide metoprolol tartrate 12.5 mg twice daily with holding parameters. Hold metoprolol for blood pressure less than 110 systolic or heart rate less than 65. -Atorvastatin 80 mg nightly starting tonight. -Heparin drip. Aspirin 162 mg was given in the ED. Will continue aspirin 81 mg daily. -N.p.o. midnight. Cardiology consultation for possible cardiac cath tomorrow 09/02/2017. -Trend troponins and also obtain EKGs. ED EKG shows anteroseptal T wave inversions. Hypertension -Patient takes verapamil for blood pressure which may be the reason why her heart rate is low. -We will not continue verapamil. Will start amlodipine 5 mg daily for blood pressure. Full code. Heparin Drip. Physician Certification 2 Midnight Certification Type: Admission for Inpatient Services Order for Inpatient Services The services are ordered in accordance with Medicare regulations or non- Medicare payer requirements, as applicable. In the case of services not specified as inpatient-only, they are appropriately provided as inpatient services in accordance with the 2-midnight benchmark. Estimated LOS (days): 2 days is the estimated time the patient will need to remain in the hospital, assuming treatment plan goals are met and no additional complications. Post-Hospital Plan: Kenyatta Mendoza DO September 01, 2017 10:27 pm
[2017-09-01 23:00] VITALS: BP 185/86; PULSE 53; RESP 16; O2SAT 99
[2017-09-01 23:10] LABS: HEMATOCRIT 37.4 % (35.0-46.0); HEMOGLOBIN 12.4 GM/DL (11.6-15.3); MEAN CELL VOLUME 88.8 FL (80.0-100.0); MEAN CORPUSCULAR HEMOGLOBIN 29.4 PG (27.0-34.0); MEAN CORPUSCULAR HGB CONC 33.1 % (32.0-36.0); MEAN PLATELET VOLUME 8.8 FL (7.0-11.0); PLATELET COUNT 329 TH/MM3 (150-450); RED BLOOD COUNT 4.22 MIL/MM3 (4.00-5.30); RED CELL DISTRIBUTION WIDTH 13.8 % (11.6-17.2); WHITE BLOOD COUNT 8.1 TH/MM3 (4.0-11.0)
[2017-09-01] MEDS: ATORVASTATIN 80 MG TAB PO SCH (23:23)
[2017-09-02] VITALS (9 sets, daily range): BP systolic 146–180; BP diastolic 83–102; PULSE 52–88; RESP 16–17; TEMP 98–98.9; O2SAT 97–100
[2017-09-02] MEDS: ACETAMINOPHEN 325 MG TAB PO PRN ×3 (03:27→18:38)
[2017-09-02] MEDS: ASPIRIN 81 MG CHEW TAB CHEW SCH (07:49)
[2017-09-02] MEDS: METOPROLOL TARTRATE 25 MG TAB PO SCH ×2 (07:54→20:19)
[2017-09-02] MEDS ORDERED: SODIUM CHLORIDE 0.9% FLUSH 10 ML FLUSH IV FLUSH SCH (09:00)
[2017-09-02] MEDS ORDERED: amLODIPine BESYLATE 5 MG TAB PO SCH (09:00)
[2017-09-02] MEDS: SODIUM CHLOR 0.9% 1000 ML INJ 1,000 ML IV SCH ×2 (10:07→20:22)
[2017-09-02] MEDS ORDERED: MIDAZOLAM HCL 2 MG/2 ML VIAL ONE (11:45)
[2017-09-02] MEDS ORDERED: HEPARIN-NS/PF INJ 1,000 ML ONE (11:45)
[2017-09-02] MEDS ORDERED: SODIUM CHLORIDE 0.9% FLUSH 10 ML FLUSH IV FLUSH PRN (12:30)
[2017-09-02] MEDS ORDERED: MISC INFORMATION XX ONE (12:30)
[2017-09-02] MEDS ORDERED: BACITRACIN OINT 0.9 GM PKT TOP ONE (12:30)
--- NOTE | 2017-09-02 12:48 | CATHPROC ---
[facility] HIS Report Study Information Study Number Admission Scheduled Start Study Start [id number] Sep 01 2017 10:03PM 09/02/2017 Sep 02 2017 11:49AM [place] [facility] Cardiac Catheterization Admit Source Facility Department Emergency department [facility] - Tax Analyst Physician and Clinical Staff Initial Jalen Jj Head Shipper Arsenio LopezRN Recorder Toby Frank,RT(R) Scrub Shamir Johnson RCIS(BS) Procedures Performed Procedure Location (Site) Vessel Name Coronary Angiograms LCA Left Coronary Coronary Angiograms RCA Right Coronary LV Gram-hand inj. LV LV Ventricle Equipment Time Washer Engineer Description Size Mfg Part Number Used/Scraped TRANSDUCER, TRUWAVE [id number] 11:50 GUPTA VELAZCO * Used W/STOCKCOCK *[id number] *[id number] *[id number] 11:50 [employer] INDUSTRIES PACK, CCL CUSTOM * Used *[id number] 11:50 [employer] PACER PEN, SKIN DUAL W/ RULER * Used *[id number] 11:50 [employer] WIRE, 3MMJ .035 180CM 180CM Used *[id number] 11:50 NAMIC MANIFOLD, 4 PORT * Used *[id number] 11:50 [employer] OMNIPAQUE, 350 MG, 150ML 150ML [id number] 11:50 [employer] MEDICAL BLANKET,WARM AIR CCL * Used *[id number] 11:50 [employer] MEDICAL SHEATH, FR4 TERUMO (10CM) FR 4 Used *[id number] History: Current Medications Medication Dosage/Unit Route Frequency Last Date/Time Taken HCTZ History: Allergies Allergy Reaction Bactrim FALL ASLEEP AND LOSS OF APPETITE sulfamethoxazole FALL ASLEEP AND LOSS OF APPETITE trimethoprim FALL ASLEEP AND LOSS OF APPETITE History: Risk Factors Family History of Hypertension Dyslipidemia Previous IL Previous Heart Failure Premature CAD Yes Yes No No No Prior Valve Prior PCI Prior CABG Surgery No No No Cerebrovascular Peripheral Artery Chronic Lung On Dialysis Diabetes Diabetes Therapy Disease Disease Disease No No No No Yes Diet History: Symptoms/Diagnosis Selection Items Chest pain History: Stress Tests Stress or Imaging Studies Performed No History: Other Current Smoker No Labs Hgb (g/dl) Hct (%) WBC (l/cumm) Platelets (thousands) 11.60-17.00 35.00-51.00 4.00-11.00 150.00-450.00 12.4 37.4 8.1 329 Glucose (mg/dl) BUN (mg/dl) Creatinine (mg/dl) BUN:Creatinine (1:x) 74.00-106.00 7.00-18.00 0.50-1.30 10.00-20.00 75 13 0.9 14.4 Na (meq/l) K (meq/l) 136.00-145.00 3.50-5.10 143 3.8 PTT (sec) 24.30-30.10 34.3 Troponin I (ng/ml) CPK (u/l) CPK-MB (ng/ML) 0.02-0.05 26.00-308.00 0.50-3.60 0.65 246 3.1 Medication Medication Total Dose (Bolus/Oral) Medication Total Dosage/Unit 1% XYLOCAINE 20 mL FENTANYL 25 mcg VERSED 1 mg Medications (Bolus/Oral) Medication Time Given Dosage/Unit Administered By Reason VERSED 09/02/2017 12:18:12 PM 1 mg Arsenio Lopez 1 mg VERSED given in lab by Arsenio Lopez RN in Left Antecubital via Peripheral IV. Ordered by Jalen Pritchett. FENTANYL 09/02/2017 12:19:18 PM 25 mcg Arsenio Lopez 25 mcg FENTANYL given in lab by Arsenio Lopez RN in Left Forearm via Peripheral IV. Ordered by Jalen Pritchett. 1% XYLOCAINE 09/02/2017 12:21:02 PM 20 mL Jalen Hernandez 20 mL 1% XYLOCAINE given in lab by Jalen Hernandez in Right Groin via Subcutaneous. Ordered by Jalen Pritchett. Medication (Drip) Medication Time Given Dosage/Unit Concentration/Unit Diluent (ml) Solution IV Solutions 09/02/2017 11:54:21 AM 0 mL (IV) 1000 NaCl .9 Patient arrived on IV Solutions in Left Antecubital via Peripheral IV. Pump/Drip Flow = 20 ml/hr usin g NaCl .9. Initial Case Assessment Cardiovascular HR Rhythm NIBP Chest Pain 57 sr 186/95 0 Circulatory - Right Pulses Dorsalis Pedis Femoral 3 2 Scale (0,1,2,3,4,d) Circulatory - Left Pulses Dorsalis Pedis Femoral 3 2 Scale (0,1,2,3,4,d) Neurological State Oriented to time-place- Alert Moves all extremities person Respiration - General Respiration Rate SpO2 (%) (B/min) 20 99 Final Case Assessment Cardiovascular HR Rhythm NIBP Chest Pain 58 sr 149/99 0 Circulatory - Right Pulses Dorsalis Pedis Femoral 3 2 Scale (0,1,2,3,4,d) Circulatory - Left Pulses Dorsalis Pedis Femoral 3 2 Scale (0,1,2,3,4,d) Neurological State Oriented to time-place- Alert Moves all extremities person Respiration - General Respiration Rate SpO2 (%) (B/min) 18 95 Chronological Log Time Study Chronological Log 11:53:53 Patient arrived via Bed. Heparin drip discontinued prior to laborer concrete plant arrival. 11:53:55 Patient Name, D.O.B, / Armband Verified By R.N. 11:53:57 Consent signed by the physician and the patient and verified by the Tax Analyst staff. 11:53:58 Pre-op and post- op instructions given; patient acknowledges understanding of instructions. 11:53:59 Verbal Stimulation=2 Physical Stimulation=2 Airway=2 Respiration=2 TOTAL=8. (0=absent, 1=li mited, 2=present) 11:54:12 Presedation assessment performed by Tax Analyst RN. 11:54:14 Patient has been NPO for More than 6Hrs. 11:54:15 Skin Breakdown-none 11:54:16 Anirudh Prominences Protected 11:54:20 A # 20 IV was noted in the Hand (left). Grade = 0 11:54:21 Patient arrived on IV Solutions in Left Antecubital via Peripheral IV. Pump/Drip Flow = 20 ml/hr using NaCl .9. 11:54:22 History and physical on the chart or being dictated. 11:55:11 A # 20 IV was noted in the Antecubital (left). Grade = 0 Vitals capture started with the following parameters, Patient=Adult, Interval=5 min, Initial Pr tvkydn=633 mmHg, 11:57:48 Deflation Rate=5 mmHg, Cuff placed on Right Arm 11:59:07 HR=57 bpm, KKOZ=841/95 mmhg, ReR3=048.0 %, Resp=20 B/min Assessment: Initial Case, HR=57 BPM, Rhythm=sr, ZMVZ=024/95 mmhg, Chest Pain=0 Right Pulses: Bhanu Ped=3, Femoral=2 11:59:37 Left Pulses: Bhanu Ped=3, Femoral=2 Neurological: State=Alert, Ox3, NAVAS Respiration: Resp=20 B/min, SpO2=99 % 12:03:37 HR=56 bpm, GDMC=649/99 mmhg, SpO2=99.0 %, Resp=18 B/min 12:03:56 Reference ECG taken 12:05:40 Bilateral groins prepped with 2% chlorhexidine, and draped after a 3 minute waiting time. 12:07:09 MD paged 12:07:11 MD responded 12:08:36 HR=57 bpm, BFXU=539/96 mmhg, SpO2=99.0 %, Resp=17 B/min 12:10:08 Pressure channel 1 zeroed. 12:13:33 HR=64 bpm, YOAD=825/98 mmhg, SpO2=98.0 %, Resp=19 B/min 12:17:33 MD arrived. 12:18:12 1 mg VERSED given in lab by Arsenio Lopez RN in Left Antecubital via Peripheral IV. Ordere d by Jalen Hernandez. 12:18:32 STHK=911/95 mmhg, SpO2=96.0 %, Resp=21 B/min 12:19:18 25 mcg FENTANYL given in lab by Arsenio Lopez RN in Left Forearm via Peripheral IV. Ordere d by Jalen Hernandez. Time Out. Correct patient, correct procedure, correct physician, labs, allergies, and equipment verified with laborer concrete plant 12:19:54 team present. Fire risk assesment completed (see hard stop sheet for coding). Time Out Conc urred by and individual staff in procedure. 12:21:01 Case Start 20 mL 1% XYLOCAINE given in lab by Jalen Hernandez in Right Groin via Subcutaneous. Ordered by Mary 12:21:02 Jalen. 12:21:26 Access site was Right Femoral Artery. 12:22:01 A SHEATH, FR4 TERUMO (10CM) FR 4 was advanced into the Fem Art (right) using the Percutaneo us technique. 12:22:36 Activated Clotting Time Drawn A JR 4.0 INFINITI CATHETER FR 4 was advanced over a wire. OMNIPAQUE, 350 MG, 150ML 150ML was us ed for 12:23:04 injections. 12:24:00 HR=63 bpm, CJAX=447/83 mmhg, SpO2=90.0 %, Resp=20 B/min Recorded Pressure: LV, HR=61, Condition=Condition 1 12:24:02 (Left Ventricle) LV 177/2/9 12:24:08 The LV was manually injected with 10 cc's and visualized. OMNIPAQUE, 350 MG, 150ML 150ML us ed. Recorded Pressure: LV, Ao, HR=60, Condition=Condition 1 12:24:20 (Left Ventricle) LV 156/3/9, (Aorta) Ao 154/84/113 12:24:47 The RCA was injected and visualized at various angles. OMNIPAQUE, 350 MG, 150ML 150ML used . 12:25:12 Catheter was removed A JL 4.0 INFINITI CATHETER FR 4 was advanced over a wire. OMNIPAQUE, 350 MG, 150ML 150ML was us ed for 12:25:13 injections. 12:25:43 ACT (Normal Range 90-180) = 156 12:26:09 The LCA was injected and visualized at various angles. OMNIPAQUE, 350 MG, 150ML 150ML used . 12:27:17 Catheter was removed 12:27:56 Case End 12:28:30 HR=68 bpm, LPOL=970/94 mmhg, SpO2=97 %, Resp=20 B/min 12:29:54 Sheath removed; pressure applied to access site. 12:33:35 HR=61 bpm, WKSH=938/94 mmhg, SpO2=97 %, Resp=15 B/min 12:38:30 HR=58 bpm, NXPW=446/99 mmhg, SpO2=95.0 %, Resp=13 B/min 12:40:31 Hemostasis obtained. 12:41:59 Sterile dressing applied to site 12:42:00 No case complications noted. 12:42:01 Cine recording checked. Assessment: Final Case, HR=58 BPM, Rhythm=sr, LSZR=846/99 mmhg, Chest Pain=0 Right Pulses: Bhanu Ped=3, Femoral=2 12:42:03 Left Pulses: Bhanu Ped=3, Femoral=2 Neurological: State=Alert, Ox3, NAVAS Respiration: Resp=18 B/min, SpO2=95 % 12:42:55 Vitals capture stopped. 12:43:32 Bedside Report will be given. 12:47:09 Patient moved to bed 12:47:53 Patient transported to DOCU End Study - Contrast Media Used In Study Contrast Total Opened (mL) Total Used (mL) Total Wasted (mL) Omnipaque 30 30 0 End Study - Maximum Contrast Load Max Contrast Load (mL) 416.7 End Study - Radiation Exposure Fluoro Time (minutes) 0.7 End Study - Sheaths Sheaths Pulled By Sheath Hold Time (min) Shamir Johnson 15 End Study - Patient Disposition Complications Transferred To Interventional Outcome No Telemetry Bed No attempt made
--- NOTE | 2017-09-02 12:54 | MB ---
cc: Jalen Hernandez MD DATE: 09/02/2017 HISTORY OF PRESENT ILLNESS: Lee is a very pleasant 57-year-old lady with no significant past medical history, who presents to the ER complaining of severe chest pain for 3 days prior to admission. Currently, she is chest pain free, otherwise denies any fevers, chills, cough, GI or bleeding, PND, orthopnea, syncope or dizziness. PAST MEDICAL AND SURGICAL HISTORY: Per history of present illness. She is status post gastric bypass, hysterectomy, dyslipidemia, "diet-controlled diabetes". MEDICATIONS: She is not on medications. SOCIAL HISTORY: Denies tobacco or alcohol use. ALLERGIES: SULFAMETHOXAZOLE AND TRIMETHOPRIM. MEDICATIONS PRIOR TO ADMISSION: 1. Bisoprolol/hydrochlorothiazide 2. Verapamil 80 b.i.d. 3. Timolol. MEDICATIONS IN THE HOSPITAL: 1. Metoprolol 12.5 q.12 hours. 2. Amlodipine 5 mg daily. 3. Aspirin 81 mg daily. 4. Atorvastatin 80 mg at bedtime. 5. Heparin bolus and drip. PHYSICAL EXAMINATION: VITAL SIGNS: Blood pressure 180/89, pulse 52, respiratory rate 15, temperature 98.0. Her sats are 98% on room air. GENERAL: She is alert and oriented x 3, in no acute distress. NECK: Supple. No JVD. No bruit. CARDIOVASCULAR: S1, S2. No murmurs, rubs or gallops. LUNGS: Clear to auscultation bilaterally. ABDOMEN: Soft, nontender and nondistended with positive bowel sounds. EXTREMITIES: No lower extremity edema. DIAGNOSTIC STUDIES: EKG shows sinus bradycardia at 49 beats per minutes, left ventricular hypertrophy with strain pattern. Cannot rule out ischemia in the anterior precordial leads. Chest x-ray shows no acute cardiopulmonary disease. Labs: White count 8.1, hemoglobin 12.4, hematocrit 37.4, platelet count 329. Troponin 0.66, 0.65 and 0.68. Sodium 143, potassium 3.8, chloride 109, bicarbonate 25.5, BUN 13, creatinine 0.95, magnesium 2.2. INR is 1.1. DIAGNOSES: 1. Lro-UM-uovoanqpc myocardial infarction. 2. Hypertension. 3. History of diabetes. 4. Status post gastric bypass surgery. DISCUSSION: I do think left heart catheterization is medically necessary on an urgent basis due to her presentation with a non-STEMI, hypertension, previous diabetes, multiple cardiac risk factors. I have explained to the patient that the risk of catheterization and PCI is a 5-10% chance of , stroke, heart attack, bleeding, infection, need for bypass surgery, dialysis, blood transfusion, bleeding, infection, anaphylaxis and arrhythmia. The patient understands and consents to proceed with the procedure. Further recommendations based on the details of her cardiac catheterization. MD JAZMIN Duke/MARY JO , 12:34 PM , 12:53 PM
--- NOTE | 2017-09-02 12:56 | MA ---
cc: Jalen Hernandez MD DATE: 09/02/2017 PROCEDURE PERFORMED: Left heart catheterization, left ventriculography, coronary angiography. INDICATIONS: Non-STEMI, hypertension, diabetes. PROCEDURAL STATEMENT: The patient was brought to the cardiac catheterization laboratory, prepped and draped in the usual sterile fashion. 10 mL of 1% lidocaine was used to locally anesthetize the right common femoral artery. A 4-Georgian sheath was placed within the right common femoral artery, 4-Georgian JR4 and JL4 catheters were used to perform left and right coronary angiography, left ventriculography. RESULTS: LV pressures 180/3-5. EF is 65%. The right coronary artery is a large, dominant vessel, reference vessel diameter of at least 4.5 mm throughout most of the proximal mid-segment. There is no significant coronary artery disease identified angiographically. The left main coronary artery has no significant disease angiographically. The left circumflex vessel is a large vessel, 4 mm reference vessel diameter. No significant disease angiographically. First obtuse marginal vessel is a large tortuous vessel with no significant disease angiographically. The LAD is a large transapical vessel supplying the distal inferoapical wall with no significant disease angiographically. First diagonal artery is a small vessel, reference vessel diameter of 2 mm, no significant disease angiographically, very tortuous. The second diagonal artery is a very tortuous vessel as well with a reference vessel diameter in the proximal segment of 2.75 mm. No significant disease angiographically. CONCLUSION: 1. Angiographically, no significant coronary artery disease in a right dominant system, as detailed above. 2. Slightly hyperdynamic left ventricular systolic function, ejection fraction of 65 to 70%. 3. Severe hypertension, suspect that her troponin elevation is due to severe hypertension and/or non-ischemic cardiomyopathic process which is not effecting her left ventricular systolic function or diastolic function. RECOMMENDATIONS: Recommend medical management of blood pressure. MD JAZMIN Duke/SB , 12:39 PM , 12:55 PM
--- NOTE | 2017-09-02 13:41 | HHI.PR ---
Subjective Remarks sp cardiac cath denies cp/sob c/o headache Objective Vitals Vital Signs Date Time Temp Pulse Resp B/P (MAP) Pulse Ox O2 Delivery O2 Flow Rate FiO2 09/02/17 12:56 97 Room Air 09/02/17 11:46 98.0 52 15 180/89 (119) 98 09/02/17 09:42 98.1 88 17 177/92 (120) 99 Room Air 09/02/17 08:48 15 09/02/17 07:46 97 21 09/02/17 07:40 98.1 57 16 148/90 (109) 100 Room Air 09/02/17 07:00 17 09/02/17 05:30 52 16 167/102 (123) 97 Room Air 09/02/17 04:00 52 16 169/83 (111) 98 Room Air 09/02/17 01:30 66 16 147/91 (109) 98 Room Air 09/01/17 23:00 53 16 185/86 (119) 99 Room Air 09/01/17 22:27 99 09/01/17 21:00 51 16 157/79 (105) 99 Room Air 09/01/17 19:53 48 16 173/96 (121) 100 Room Air 09/01/17 18:53 98.3 52 18 191/90 (123) 97 Result Diagram: 09/01/17221909/01/172029 Imaging Last Impressions Chest X-Ray 09/01/171956 Signed Impressions: CONCLUSION: No acute cardiopulmonary disease. Objective Remarks AAOx3 nad clear lungs BL S1S2 RRR, no MRG no edema in lower extremity good pedal pulses BL Urinary Catheter: No Vascular Central Line Catheter: No A/P Problem List: (1) Non-ST elevated myocardial infarction (non-STEMI) ICD Code: I21.4 - Non-ST elevation (NSTEMI) myocardial infarction Status: Acute (2) Hypertensive emergency ICD Code: I16.1 - Hypertensive emergency (3) Chest pain ICD Code: R07.9 - Chest pain, unspecified Assessment and Plan off heprin drip sp cardiac catheterization with clean coronaries. Suspect elevation in trop due to hypertensive emergency - sbp in the 190's on admission and patient with associated chest pain. Patient's bp still severely elevated - Will increase amlodipine dose up to 10 mg po daily and give 5 mg po now. Continue to monitor vital signs. continue asa, statin, beta billie. add heparin sq for dvt prophylaxis. Discharge Planning Patient has been cleared by cardiology for DC. DC in am if bp stable. Monitor in [facility]. Chano Fuchs MD September 02, 2017 13:41
[2017-09-02] MEDS ORDERED: cloNIDine HCL 0.1 MG TAB PO PRN (13:45)
[2017-09-02] MEDS ORDERED: IOHEXOL 350 MG/ML 50 ML BTL (for Cath Lab) OTHER ONE (13:51)
[2017-09-02] MEDS ORDERED: amLODIPine BESYLATE 5 MG TAB PO ONE (14:15)
--- NOTE | 2017-09-02 19:44 | EKG ---
Date Performed: 09/01/2017 Time Performed: 19:05:19 PTAGE: 57 years EKG: SINUS BRADYCARDIA VOLTAGE CRITERIA FOR LVH MODERATE T-WAVE ABNORMALITY, CONSIDER ANTERIOR I SCHEMIA ABNORMAL ECG Since PREVIOUS TRACING , no significant change noted PREVIOUS TRACIN01/07/2017 16.36 DOCTOR: Bel Kelley Interpretating Date/Time 09/02/2017 19:43:03
--- NOTE | 2017-09-02 19:44 | EKG ---
Date Performed: 09/02/2017 Time Performed: 00:26:38 PTAGE: 57 years EKG: SINUS BRADYCARDIA MINIMAL VOLTAGE CRITERIA FOR LVH, CONSIDER NORMAL VARIANT ST DEVIATION AN D MODERATE T-WAVE ABNORMALITY, CONSIDER ANTERIOR ISCHEMIA ABNORMAL ECG Since PREVIOUS TRACING , no significant change noted PREVIOUS TRACIN09/01/2017 19.05 DOCTOR: Bel Kelley Interpretating Date/Time 09/02/2017 19:43:13
[2017-09-02] MEDS: ATORVASTATIN 80 MG TAB PO SCH (20:16)
[2017-09-02] MEDS: SODIUM CHLORIDE 0.9% FLUSH 10 ML FLUSH IV FLUSH SCH (20:19)
[2017-09-03] VITALS (7 sets, daily range): BP systolic 114–187; BP diastolic 77–114; PULSE 52–78; RESP 16; TEMP 98–98.6; O2SAT 97–100
[2017-09-03] MEDS ORDERED: HEPARIN SODIUM - SQ 10,000 UNITS/ML VIAL SQ SCH (06:00)
[2017-09-03] MEDS ORDERED: PILL SPLITTER OTHER PRN (08:00)
--- NOTE | 2017-09-03 08:01 | HHI.PR ---
Subjective Remarks no complains of chest pain or shortness of breath d/w her eresults of cardiac cath states history of HTN- on Bisoprolol and verapamil and HCTZ [facility] non [facility]oker Objective Vitals Vital Signs Date Time Temp Pulse Resp B/P (MAP) Pulse Ox O2 Delivery O2 Flow Rate FiO2 09/03/17 05:44 147/91 (109) 09/03/17 04:50 98.6 66 16 187/114 (138) 97 09/03/17 04:00 78 09/03/17 00:15 98.3 55 16 158/96 (116) 100 09/03/17 00:00 52 09/02/17 20:05 98.9 60 16 146/95 (112) 99 09/02/17 20:00 70 09/02/17 12:56 97 Room Air 09/02/17 11:46 98.0 52 15 180/89 (119) 98 09/02/17 09:42 98.1 88 17 177/92 (120) 99 Room Air 09/02/17 08:48 15 I/O 09/02/17 09/02/17 09/02/17 09/03/17 09/03/17 09/03/17 07:00 15:00 23:00 07:00 15:00 23:00 Intake Total 760 ml Balance 760 ml Intake Oral 480 ml IV Total 280 ml # Voids 2 Result Diagram: 09/01/17221909/01/172029 Imaging Last Impressions Chest X-Ray 09/01/171956 Signed Impressions: CONCLUSION: No acute cardiopulmonary disease. Objective Remarks awake and alert, oriented x 3 anictric lungs- no rales regularr hythm abdomen soft, nontender extremities no edema neuro exam- non focal [place] insert reason: ICU Pt Getting Diuretics A/P Problem List: (1) Non-ST elevated myocardial infarction (non-STEMI) ICD Code: I21.4 - Non-ST elevation (NSTEMI) myocardial infarction Status: Acute (2) Hypertensive emergency ICD Code: I16.1 - Hypertensive emergency (3) Chest pain ICD Code: R07.9 - Chest pain, unspecified Assessment and Plan 57 years old female Chest pain- secodnary to severe uncontrolled hypertension. S/P cardiac cath - clean coronaries , good EF Uncontrolled hypertension - BP imrpoved but not ideal - continue on Amlodipine 10 mg po daily - DC BB- clean coronaries - add diuretics-dyazide 37.5/25 mg po daily continue asa, - check lipid panel Patient has been cleared by cardiology for DC.patient has no PCP will ask CM to assist info- give to our OP clinic and assist with DC meds will check on patient again this pm- if stable DC Zev Landry MD September 03, 2017 08:01
[2017-09-03] MEDS ORDERED: AMLO10 PO (08:13)
[2017-09-03] MEDS ORDERED: Triamterene-Hctz 37.5-25 Mg PO (08:18)
[2017-09-03] MEDS: ASPIRIN 81 MG CHEW TAB CHEW SCH (08:18)
[2017-09-03] MEDS: SODIUM CHLORIDE 0.9% FLUSH 10 ML FLUSH IV FLUSH SCH (08:20)
[2017-09-03] MEDS ORDERED: ASPI81 CHEW (08:20)
[2017-09-03] MEDS ORDERED: TRIAMTERENE/HCTZ 37.5 MG/25 MG CAP PO SCH (09:00)
[2017-09-03] MEDS ORDERED: METOPROLOL TARTRATE 25 MG TAB PO SCH (09:00)
[2017-09-03] MEDS ORDERED: INFLUENZA VIRUS VACCINE (QUADRIVALENT) 0.5 ML SYR IM ONE (09:00)
[2017-09-03] MEDS ORDERED: HYDROCHLOROTHIAZIDE 25 MG TAB PO SCH (09:00)
[2017-09-03 10:52] LABS: ALBUMIN 3.6 GM/DL (3.4-5.0); DIRECT BILIRUBIN ADULT 0.1 MG/DL (0.0-0.2)
[2017-09-03 10:54] LABS: INDIRECT BILIRUBIN 0.6 MG/DL (0.0-0.8); TOTAL BILIRUBIN ADULT 0.7 MG/DL (0.2-1.0); TOTAL PROTEIN 7.7 GM/DL (6.4-8.2)
[2017-09-03 10:58] LABS: CHOLESTEROL/ HDL RATIO 2.57 RATIO; HDL CHOLESTEROL 60.6 MG/DL (40.0-60.0)
--- NOTE | 2017-09-03 14:09 | HHI.DS ---
Discharge Summary Admission Date September 01, 2017 at 22:03 Discharge Date: September 03, 2017 Admitting Diagnosis Nstemi (1) Hypertensive emergency ICD Code: I16.1 - Hypertensive emergency Diagnosis: Principal (2) Non-ST elevated myocardial infarction (non-STEMI) ICD Code: I21.4 - Non-ST elevation (NSTEMI) myocardial infarction Diagnosis: Principal Status: Acute (3) Chest pain ICD Code: R07.9 - Chest pain, unspecified Diagnosis: Principal Procedures cardiac cath Brief History - From Admission Ms. Caceres is a pleasant 57-year-old -Martiniquais female with a history of hypertension, gastric bypass surgery and previously diagnosed diabetes mellitus who presents to the emergency department on 09/01/2017 due to 3 day duration of chest pain. 3 days prior to this admission, patient was sitting and suddenly developed left-sided chest pressure with radiation to her jaw. She had some nausea as well. However she did not have any diaphoresis. She continued to have chest pain off and on for the last 3 days and today due to worsening chest pain her daughter advised her to come to the emergency department. Today patient had tingling sensation in her left arm as well. Patient does not use aspirin on a regular basis. At the time of this interview, patient is chest pain-free. No cough, abdominal pain, fever or chills. No changes in bowel or bladder habits. First troponin was 0.66. CBC/BMP: 09/01/17 2220 09/01/17 2030 Significant Findings Laboratory Tests Test 09/01/17 20:30 09/01/17 22:20 09/01/17 23:45 09/02/17 03:30 Chloride Level 109 MEQ/L (98-107) Estimat Glomerular Filtration Rate 73 ML/MIN (>89) Total Creatine Kinase 246 U/L (26-192) Troponin I 0.66 NG/ML (0.02-0.05) 0.65 NG/ML (0.02-0.05) Activated Partial Thromboplast Time 102.7 SEC (24.3-30.1) 116.0 SEC (24.3-30.1) 40.9 SEC (24.3-30.1) Test 09/02/17 09:54 09/03/17 09:30 Activated Partial Thromboplast Time 34.3 SEC (24.3-30.1) Troponin I 0.68 NG/ML (0.02-0.05) Alkaline Phosphatase 124 U/L (45-117) HDL Cholesterol 60.6 MG/DL (40.0-60.0) Imaging Last Impressions Chest X-Ray 09/01/171956 Signed Impressions: CONCLUSION: No acute cardiopulmonary disease. PE at Discharge awake and alert, oriented x 3 anictric lungs- no rales regularr hythm abdomen soft, nontender extremities no edema neuro exam- non focal Pt update on day of discharge good bp readings- up and ambulating no dizziess sinus Hospital Course 57 years old female Chest pain- secodnary to severe uncontrolled hypertension. S/P cardiac cath - clean coronaries , good EF Uncontrolled hypertension - BP imrpoved but not ideal - continue on Amlodipine 10 mg po daily - DC BB- clean coronaries - add diuretics-dyazide 37.5/25 mg po daily continue asa, - check lipid panel- good Patient has been cleared by cardiology for DC.patient has no PCP will ask CM to assist info- give to our OP clinic and assist with DC meds will check on patient again this pm- if stable DC Pt Condition on Discharge: Stable Discharge Disposition: Discharge Home Discharge Time: > 30 minutes Discharge Instructions DIET: Follow Instructions for: Heart Healthy Diet Speech Therapy-Diet Recommends: Regular Activities you can perform: Weight Bearing as [place] Activities to Avoid: Strenuous Activity Follow up Referrals: PCP Follow-up - 3-5 Days New Orders: BASIC METABOLIC PROF - 09/07/17 New Medications: Amlodipine (Norvasc) 10 Mg Tab 10 MG PO DAILY for HTN for 30 Days, #30 TAB Aspirin (Tgt Aspirin) 81 Mg Chw 81 MG CHEW DAILY for CAD preven for 90 Days, EA 1 Refill [Triamterene-Hctz 37.5-25 Mg] () 1 CAP CAP 1 CAP PO DAILY for HTN for 30 Days Discontinued Medications: Bisoprolol-Hydrochlorothiazide (Bisoprolol-Hydrochlorothiazide) 5-6.25 Mg Tab 1 TAB PO DAILY for Blood Pressure Management, #30 TAB 0 Refills Verapamil (Verapamil) 80 Mg Tab 80 MG PO BID, #60 TAB 0 Refills Zev Landry MD September 03, 2017 14:08
--- NOTE | 2017-09-03 15:43 | EKG ---
Date Performed: 09/02/2017 Time Performed: 09:57:21 PTAGE: 57 years EKG: SINUS BRADYCARDIA DIFFUSE NONSPECIFIC T-WAVE CHANGES WITH T-WAVE INVERSIONS INERIOR/LATERAL LY ABNORMAL ECG PREVIOUS TRACING : 09/02/2017 00.26 DOCTOR: Chase Whitt Interpretating Date/Time 09/03/2017 15:43:00
--- NOTE | 2017-09-03 15:44 | EKG ---
Date Performed: 09/03/2017 Time Performed: 06:33:38 PTAGE: 57 years EKG: Sinus bradycardia Left ventricular hypertrophy Extensive T wave changes may be due to hyper trophy and/or ischemia Abnormal ECG Compared to PREVIOUS TRACING , no change. PREVIOUS TRACING DOCTOR: Chase Whitt Interpretating Date/Time 09/03/2017 15:43:48
== END 2017-09-03 14:48 | disposition home or self-care (01) | DRG 281 ==
LOC: NEPC 18:31 → NEDA 22:03 → NEDH 09-02 02:25 → HCIN 09-02 19:57
PROVIDERS: ADMIT Internal Medicine; ATTEND Internal Medicine
PROC: B2151ZZ Fluoroscopy of Left Heart using Low Osmolar Contrast (ICD-10-PCS; 2017-09-02)
PROC: B2111ZZ Fluoroscopy of Multiple Coronary Arteries using Low Osmolar Contrast (ICD-10-PCS; 2017-09-02)
PROC: 4A023N7 Measurement of Cardiac Sampling and Pressure, Left Heart, Percutaneous Approach (ICD-10-PCS; principal; 2017-09-02 12:15)
DX: I21.4 Non-ST elevation (NSTEMI) myocardial infarction (principal); I42.9 Cardiomyopathy, unspecified; E11.9 Type 2 diabetes mellitus without complications; I16.1 Hypertensive emergency; I10 Essential (primary) hypertension; Z98.84 Bariatric surgery status; Z88.2 Allergy status to sulfonamides; Z83.3 Family history of diabetes mellitus
CPT/HCPCS: 71046; 80048; 80061; 80076; 82550; 82552; 83735; 84484; 85002; 85025; 85027; 85610; 85730; 93005; 93458; 96360; 99152; C1769; C1893; J1644; J2250; J3010; J7030; Q9967